=== PATIENT | female | born 1950 | race Caucasian/White ===

== ENCOUNTER 2019-02-17 01:47 | Inpatient (IN) | payer OTHER ==
[2019-02-17] MEDS ORDERED: Clindamycin/D5W 600 mg/50 ml Premix Bag ONE (02:08)
[2019-02-17] MEDS ORDERED: Adacel (T-DAP) 0.5 ML SYRINGE ONE (02:08)
[2019-02-17 02:39] LABS: Hemoglobin 13.2 g/dL (12.0-16.0); Mean Corpuscular HGB CONC 33.7 g/dL (32.0-36.0); Mean Corpuscular Hemoglobin 34.4 pg (27.0-31.0); RBC Distribution Width 12.3 % (11.5-14.5); Red Blood Cell (RBC) Count 3.84 mill/uL (4.20-5.40); White Blood Cell (WBC) Count 5.6 thou/uL (4.8-10.8)
[2019-02-17] MEDS ORDERED: Lidocaine 1% (PF) 30 ML VIAL ONE (02:45)
[2019-02-17] MEDS ORDERED: Bacitracin 1 PK ONE (02:52)
[2019-02-17] MEDS ORDERED: Fentanyl 100 MCG/2 ML VIAL ONE ×5 (02:52→13:35)
[2019-02-17] MEDS ORDERED: Ketamine 50 MG/ML (10ML VIAL) ONE (02:52)
[2019-02-17 02:55] LABS: #Lymphocytes 0.7 thou/uL (1.20-3.40); #Monocytes 0.5 thou/uL (0.11-0.59); #Neutrophils 4.3 thou/uL (1.40-6.50); %Basophils 0.5 % (0.0-1.0); %Eosinophils 0.7 % (0.0-10.0); %Lymphocytes 13.2 % (21.0-51.0); %Monocytes 8.9 % (0.0-10.0); %Neutrophils 76.7 % (42.0-75.0)
[2019-02-17 02:59] LABS: ALT (SGPT) 21 U/L (8-55); AST (SGOT) 34 U/L (5-34); Albumin 3.2 g/dL (3.4-4.8); Alcohol Less than 10 mg/dL (Less than 10); Alkaline Phosphatase 99 U/L (40-110); Anion Gap 14 mmol/L (10-20); BUN (Urea Nitrogen) 24 mg/dL (9.8-20.1); Bilirubin, Total 0.9 mg/dL (0.2-1.2); Calc. Creatinine Clearance 0 mL/min (70-130); Calcium 8.6 mg/dL (7.8-10.44); Carbon Dioxide 21 mmol/L (23-31); Chloride 107 mmol/L (98-107); Estimated GFR-MDRD 74; Globulin 2.9 g/dL (2.4-3.5); Glucose 114 mg/dL (80-115); Lipase 321 U/L (8-78); Potassium 3.5 mmol/L (3.5-5.1); Protein, Total 6.1 g/dL (6.0-8.3); Sodium 138 mmol/L (136-145)
[2019-02-17 03:02] LABS: Mean Platelet Volume 8.4 fL (7.4-10.4); Platelet Count 111 thou/uL (130-400); Platelet Morphology Comment Appears Decreased
[2019-02-17] MEDS ORDERED: Ondansetron PF 4 MG/2 ML Vial IVP PRN (03:20)
[2019-02-17] MEDS ORDERED: Dextrose 50% Abboject 50 ML SYRINGE SLOW IVP PRN (03:20)
[2019-02-17] MEDS ORDERED: HumaLOG 300 UNITS/3 ML VIAL SC PRN (03:20)
[2019-02-17] MEDS ORDERED: Dextrose 5% in Water 1,000 ML IV PRN (03:20)
[2019-02-17] MEDS ORDERED: Ketorolac Tromethamine 30 MG/ML VIAL IVP PRN (03:28)
[2019-02-17] MEDS ORDERED: Sodium Chloride 0.9% 1,000 ML IV SCH (03:30)
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
[2019-02-17] MEDS: Acetaminophen 1,000 MG in Premix Bag 1 BAG IVPB SCH ×2 (05:35→15:35)
[2019-02-17] MEDS: Sodium Chloride 0.9% 1,000 ML IV SCH ×2 (05:35→15:51)
[2019-02-17 05:50] LABS: Amphetamine Not Detected (NotDetected); Benzodiazepine Screen Not Detected (NotDetected); Cocaine Metabolite Screen Not Detected (NotDetected); Medtox Reader # READER 1; Methadone Not Detected (NotDetected); Methamphetamine Not Detected (NotDetected); Opiate Screen Not Detected (NotDetected); Phencyclidine (PCP) Not Detected (NotDetected); THC/Cannabinoid Screen Not Detected (NotDetected); Tricyclic Screen Not Detected (NotDetected)
[2019-02-17 05:51] LABS: Barbiturates Screen Not Detected (NotDetected); Medtox Control Line Valid? VALID (VALID); Oxycodone Screen Not Detected (NotDetected)
[2019-02-17 06:19] LABS: Hemoglobin 12.9 g/dL (12.0-16.0)
[2019-02-17 06:28] VITALS: BMI 28.7
[2019-02-17 06:43] LABS: Anion Gap 12 mmol/L (10-20); BUN (Urea Nitrogen) 17 mg/dL (9.8-20.1); Calc. Creatinine Clearance 75 mL/min (70-130); Calcium 8.6 mg/dL (7.8-10.44); Carbon Dioxide 22 mmol/L (23-31); Chloride 108 mmol/L (98-107); Estimated GFR-MDRD 83; Glucose 116 mg/dL (80-115); Potassium 3.7 mmol/L (3.5-5.1); Sodium 138 mmol/L (136-145)
[2019-02-17] MEDS ORDERED: traMADol HCl 50 MG TAB PO PRN (06:46)
[2019-02-17] MEDS ORDERED: Clindamycin/D5W 900 MG in Premix Bag 1 BAG IVPB SCH ×2 (07:30→14:00)
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
[2019-02-17 07:56] LABS: Magnesium 1.6 mg/dL (1.6-2.6)
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
[2019-02-17] MEDS ORDERED: Magnesium 2 GM/50 ML 2 GM in Premix Bag 1 BAG IVPB SCH (08:30)
[2019-02-17] MEDS ORDERED: Potassium Phosphate 15 MMOL in Sodium Chloride 0.9% 250 ML 100 ML IVPB SCH (08:30)
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
[2019-02-17 09:26] LABS: Hemoglobin 12.8 g/dL (12.0-16.0)
[2019-02-17] MEDS: traMADol HCl 50 MG TAB PO PRN ×2 (09:37→22:57)
[2019-02-17] MEDS: Famotidine/PF 20 mg/2ml Vial SLOW IVP SCH (09:38)
[2019-02-17] MEDS: Gabapentin 100 MG CAP PO SCH ×2 (09:39→22:57)
[2019-02-17] MEDS: Senokot S 8.6-50 MG TAB PO SCH ×2 (09:39→23:02)
[2019-02-17] MEDS: Polyethylene Glycol 3350 17 GM Packet PO SCH (09:40)
[2019-02-17] MEDS ORDERED: Famotidine/PF 20 mg/2ml Vial ONE (10:23)
[2019-02-17] MEDS ORDERED: Dexamethasone 4 mg/ml Vial ONE (10:43)
[2019-02-17] MEDS ORDERED: Rocuronium Bromide 10 MG/ML (10ML VIAL) ONE (10:49)
[2019-02-17] MEDS ORDERED: Bupivacaine/Epinephrine 0.5% 10 ML VIAL ONE (10:49)
[2019-02-17] MEDS ORDERED: Glycopyrrolate 0.4 MG/ 2 ML VIAL ONE (10:49)
[2019-02-17] MEDS ORDERED: PROPOFOL 200 MG/20 ML VIAL ONE (10:49)
[2019-02-17] MEDS ORDERED: Ondansetron PF 4 MG/2 ML Vial ONE (10:49)
[2019-02-17] MEDS ORDERED: Lidocaine 1% PF 5 ML VIAL ONE (10:49)
[2019-02-17] MEDS ORDERED: Promethazine HCl 25 MG/ML VIAL SLOW IVP PRN (11:47)
[2019-02-17] MEDS ORDERED: Meperidine HCl/PF 25 MG/ML VIAL SLOW IVP PRN (11:47)
[2019-02-17] MEDS ORDERED: Promethazine HCl 25 MG/ML VIAL IM PRN (11:47)
[2019-02-17] MEDS ORDERED: ISOVUE-370 76%-LOCM 1 ML ONE (12:00)
--- NOTE | 2019-02-17 13:13 | RAD ---
3 fluoroscopic spot images of the left knee INDICATION: ORIF of left knee fracture COMPARISON: Prior left knee radiograph dated February 17, 2019 IMPRESSION: There is been interval open reduction internal fixation of the proximal tibial plateau fr acture. There is improved fracture alignment of the proximal fibular head fracture. Instrumentation projects in expected position. Total fluoroscopic time was 49 seconds. Total exposure was 1.41 mGy.
[2019-02-17] MEDS ORDERED: Promethazine HCl 25 MG/ML VIAL ONE (13:53)
[2019-02-17] MEDS ORDERED: Meperidine HCl/PF 25 MG/ML VIAL ONE (13:58)
[2019-02-17] MEDS ORDERED: Morphine 4 MG/ML VIAL SLOW IVP SCH (14:00)
[2019-02-17] MEDS ORDERED: diphenhydrAMINE 50 MG/ML VIAL ONE (14:00)
[2019-02-17] MEDS ORDERED: diphenhydrAMINE 50 MG/ML VIAL IVP SCH (14:00)
[2019-02-17] MEDS ORDERED: Morphine 4 MG/ML VIAL ONE (14:01)
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
[2019-02-17] MEDS: Clindamycin/D5W 900 MG in Premix Bag 1 BAG IVPB SCH ×2 (15:49→23:53)
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
[2019-02-17] MEDS ORDERED: Acetaminophen 1,000 MG in Premix Bag 1 BAG IVPB SCH (21:00)
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
[2019-02-17] MEDS: tiZANidine HCl 4 MG TAB PO SCH (22:56)
[2019-02-17] MEDS: Acetaminophen 500 MG TAB PO SCH (23:31)
[2019-02-18] MEDS: Famotidine/PF 20 mg/2ml Vial SLOW IVP SCH
[2019-02-18] MEDS: Acetaminophen 500 MG TAB PO SCH ×3 (05:14→18:06)
[2019-02-18 05:19] LABS: #Lymphocytes 0.5 thou/uL (1.20-3.40); #Monocytes 0.5 thou/uL (0.11-0.59); #Neutrophils 3.1 thou/uL (1.40-6.50); %Basophils 0.2 % (0.0-1.0); %Eosinophils 0.2 % (0.0-10.0); %Lymphocytes 12.2 % (21.0-51.0); %Monocytes 11.3 % (0.0-10.0); %Neutrophils 76.1 % (42.0-75.0); Mean Corpuscular HGB CONC 33.2 g/dL (32.0-36.0); Mean Corpuscular Hemoglobin 34.4 pg (27.0-31.0); Mean Platelet Volume 8.8 fL (7.4-10.4); Platelet Count 83 thou/uL (130-400); RBC Distribution Width 12.4 % (11.5-14.5)
[2019-02-18] MEDS: Sodium Chloride 0.9% 1,000 ML IV SCH ×3 (05:21→18:06)
[2019-02-18 05:57] LABS: Anion Gap 10 mmol/L (10-20); BUN (Urea Nitrogen) 20 mg/dL (9.8-20.1); Calc. Creatinine Clearance 72 mL/min (70-130); Calcium 7.4 mg/dL (7.8-10.44); Carbon Dioxide 22 mmol/L (23-31); Chloride 111 mmol/L (98-107); Estimated GFR-MDRD 79; Glucose 123 mg/dL (80-115); Magnesium 2.1 mg/dL (1.6-2.6); Potassium 4.6 mmol/L (3.5-5.1); Sodium 138 mmol/L (136-145)
[2019-02-18] MEDS: Senokot S 8.6-50 MG TAB PO SCH ×2 (08:47→20:46)
[2019-02-18] MEDS: Gabapentin 100 MG CAP PO SCH (08:47)
[2019-02-18] MEDS: Polyethylene Glycol 3350 17 GM Packet PO SCH (08:47)
[2019-02-18] MEDS: Famotidine 20 MG TAB PO SCH ×2 (08:47→20:34)
[2019-02-18] MEDS: traMADol HCl 50 MG TAB PO PRN (10:58)
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
[2019-02-18] MEDS ORDERED: Hydrocortisone Sod Succ/PF 100 mg/2 ml Vial IVP SCH (15:00)
[2019-02-18] MEDS: Hydrocortisone Sod Succ/PF 100 mg/2 ml Vial IVP SCH ×2 (16:03→20:38)
[2019-02-18] MEDS: Gabapentin 300 MG CAP PO SCH (20:34)
[2019-02-18] MEDS: tiZANidine HCl 4 MG TAB PO SCH (20:36)
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
[2019-02-19] MEDS: traMADol HCl 50 MG TAB PO SCH ×5 (02:11→23:34)
[2019-02-19] MEDS: Acetaminophen 500 MG TAB PO SCH ×5 (02:11→23:34)
[2019-02-19] MEDS: Hydrocortisone Sod Succ/PF 100 mg/2 ml Vial IVP SCH ×4 (02:41→20:47)
[2019-02-19] MEDS ORDERED: diphenhydrAMINE 50 MG/ML VIAL IVP SCH (06:45)
[2019-02-19] MEDS ORDERED: Fentanyl 100 MCG/2 ML VIAL SLOW IVP SCH (06:45)
[2019-02-19] MEDS: Gabapentin 300 MG CAP PO SCH ×2 (08:01→20:47)
[2019-02-19] MEDS: Senokot S 8.6-50 MG TAB PO SCH ×2 (08:01→20:47)
[2019-02-19] MEDS: Polyethylene Glycol 3350 17 GM Packet PO SCH (08:02)
[2019-02-19] MEDS: Famotidine 20 MG TAB PO SCH ×2 (08:02→20:47)
[2019-02-19] MEDS: tiZANidine HCl 4 MG TAB PO SCH (20:46)
[2019-02-19] MEDS: Aspirin 81 mg Enteric Coated Tablet PO SCH (20:47)
--- NOTE | 2019-02-19 22:52 | PRG ---
DATE OF SERVICE: 02/19/2019 Seen approximately 5 hours, updated from progress note today. SUBJECTIVE: Ms. Aaron sitting up, eating, smiling, no acute distress. Pain is controlled. She is awaiting rehab. I have discussed the case with Neurosurgery reference. DVT prophylaxis. Patient is able to be on DVT prophylaxis. Even with C1 fracture there standpoint, however, her platelets were noted to be a little low this morning at 83. We will repeat her CBC in the morning. Consider adding DVT prophylaxis. Her pain is better controlled. Her blood pressures remained stable. She is still on steroids, that is only IV medication. I am going to switch her over to p.o. tonight. If she remains hemodynamically stable, we can stop her steroids. There are no further updates. I have updated the patient's bedside, as well as coordinated with the bedside RN. Job ID: [id number]
[2019-02-20 04:46] LABS: #Lymphocytes 0.5 thou/uL (1.20-3.40); #Monocytes 0.2 thou/uL (0.11-0.59); %Basophils 0.1 % (0.0-1.0); %Eosinophils 0.3 % (0.0-10.0); %Monocytes 8.4 % (0.0-10.0); %Neutrophils 72.3 % (42.0-75.0); Hemoglobin 11.2 g/dL (12.0-16.0); Mean Corpuscular HGB CONC 33.1 g/dL (32.0-36.0); Mean Corpuscular Hemoglobin 34.1 pg (27.0-31.0); Mean Platelet Volume 8.9 fL (7.4-10.4); Platelet Count 80 thou/uL (130-400); RBC Distribution Width 12.3 % (11.5-14.5); Red Blood Cell (RBC) Count 3.28 mill/uL (4.20-5.40); White Blood Cell (WBC) Count 2.7 thou/uL (4.8-10.8)
[2019-02-20 05:00] LABS: Anion Gap 8 mmol/L (10-20); BUN (Urea Nitrogen) 18 mg/dL (9.8-20.1); Calc. Creatinine Clearance 80 mL/min (70-130); Calcium 8.3 mg/dL (7.8-10.44); Carbon Dioxide 25 mmol/L (23-31); Chloride 111 mmol/L (98-107); Estimated GFR-MDRD 90; Glucose 124 mg/dL (80-115); Magnesium 1.9 mg/dL (1.6-2.6); Phosphorus 2.1 mg/dL (2.3-4.7); Potassium 4.5 mmol/L (3.5-5.1); Sodium 139 mmol/L (136-145)
[2019-02-20] MEDS: Acetaminophen 500 MG TAB PO SCH ×4 (05:15→23:10)
[2019-02-20] MEDS: traMADol HCl 50 MG TAB PO SCH ×4 (05:16→23:10)
[2019-02-20] MEDS: Famotidine 20 MG TAB PO SCH ×2 (08:13→20:28)
[2019-02-20] MEDS: Senokot S 8.6-50 MG TAB PO SCH ×2 (08:13→20:28)
[2019-02-20] MEDS: predniSONE 20 MG TAB PO SCH (08:14)
[2019-02-20] MEDS: Gabapentin 300 MG CAP PO SCH ×2 (08:14→20:28)
[2019-02-20] MEDS: Polyethylene Glycol 3350 17 GM Packet PO SCH (08:15)
[2019-02-20] MEDS: Aspirin 81 mg Enteric Coated Tablet PO SCH ×2 (08:15→20:28)
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
--- NOTE | 2019-02-20 11:01 | PRG ---
DATE OF SERVICE: 02/20/2019 Please see Gordo Trejo's note for full details. Await rehab placement for Mrs. Aaron. Job ID: [id number]
--- NOTE | 2019-02-20 12:02 | MRI ---
MRI LEFT SHOULDER WITHOUT CONTRAST: HISTORY: Left upper extremity pain and weakness. FINDINGS: There is mild arthrosis of the AC joint. There is a full-thickness retracted tear of the supraspinatu s tendon. The tendon is retracted by approximately 3.3 cm. The tear involves the entire supraspinatus tendon and includes the anterior half of the infraspinatus tendon. The subscapularis muscle and tendon appear intact. There is tendinosis of the intraarticular portion of the biceps tendon. The biceps tendon may also contain a split tear. There is some tenosynovitis ch zohra. The biceps tendon lies in a fairly normal position within the bicipital groove. Some increased signal change within the superior labrum, which probably represents some internal dege neration. I do not see a definite tear. The inferior glenohumeral ligamentous and labral complex is u nremarkable. There are edema changes associated with the musculotendinous junction of the infraspinatus. There is mild atrophy of the superior fibers of the infraspinatus and mild atrophy of the supraspinatus. IMPRESSION: Large, full-thickness supraspinatus tendon tear and tear extending to involve the more anterior half of the infraspinatus. The tear is retracted by 3.2 cm with the anterior-posterior dimension of the te ar approximately 2.7 cm. Mild atrophy of the supraspinatus and infraspinatus muscles is noted. POS: [facility]
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
[2019-02-20] MEDS: tiZANidine HCl 4 MG TAB PO SCH (20:28)
[2019-02-21] MEDS: Acetaminophen 500 MG TAB PO SCH ×3 (05:55→18:21)
[2019-02-21] MEDS: traMADol HCl 50 MG TAB PO SCH ×3 (05:55→18:21)
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
[2019-02-21] MEDS: Gabapentin 300 MG CAP PO SCH (09:52)
[2019-02-21] MEDS: predniSONE 20 MG TAB PO SCH (09:52)
[2019-02-21] MEDS: Aspirin 81 mg Enteric Coated Tablet PO SCH ×2 (09:53→21:37)
[2019-02-21] MEDS: Senokot S 8.6-50 MG TAB PO SCH ×2 (09:53→21:37)
[2019-02-21] MEDS: Polyethylene Glycol 3350 17 GM Packet PO SCH (09:53)
[2019-02-21 10:56] LABS: #Eosinphils 0.1 thou/uL (0.0-0.7); #Lymphocytes 1.1 thou/uL (1.20-3.40); #Monocytes 0.4 thou/uL (0.11-0.59); #Neutrophils 1.8 thou/uL (1.40-6.50); %Basophils 0.3 % (0.0-1.0); %Eosinophils 2.2 % (0.0-10.0); %Lymphocytes 33.2 % (21.0-51.0); %Monocytes 10.5 % (0.0-10.0); %Neutrophils 53.7 % (42.0-75.0); Hemoglobin 11.5 g/dL (12.0-16.0); Mean Corpuscular HGB CONC 33.6 g/dL (32.0-36.0); Mean Platelet Volume 8.3 fL (7.4-10.4); Platelet Count 122 thou/uL (130-400); RBC Distribution Width 12.4 % (11.5-14.5); Red Blood Cell (RBC) Count 3.38 mill/uL (4.20-5.40); White Blood Cell (WBC) Count 3.4 thou/uL (4.8-10.8)
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
[2019-02-21 11:35] LABS: Anion Gap 11 mmol/L (10-20); BUN (Urea Nitrogen) 18 mg/dL (9.8-20.1); Calc. Creatinine Clearance 76 mL/min (70-130); Calcium 8.5 mg/dL (7.8-10.44); Carbon Dioxide 24 mmol/L (23-31); Chloride 108 mmol/L (98-107); Estimated GFR-MDRD 84; Glucose 84 mg/dL (80-115); Magnesium 1.7 mg/dL (1.6-2.6); Phosphorus 2.6 mg/dL (2.3-4.7); Potassium 3.5 mmol/L (3.5-5.1); Sodium 139 mmol/L (136-145)
[2019-02-21] MEDS: Cyclobenzaprine 10 MG TAB PO PRN (12:09)
[2019-02-21] MEDS: Ibuprofen 600 MG TAB PO SCH ×2 (14:21→21:37)
[2019-02-21] MEDS: Gabapentin 400 MG CAP PO SCH ×2 (14:22→21:37)
[2019-02-21] MEDS: tiZANidine HCl 4 MG TAB PO SCH (21:37)
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
[2019-02-22] MEDS: Acetaminophen 500 MG TAB PO SCH ×5 (00:47→23:35)
[2019-02-22] MEDS: traMADol HCl 50 MG TAB PO SCH ×5 (00:47→23:35)
[2019-02-22 05:40] LABS: #Eosinphils 0.1 thou/uL (0.0-0.7); #Monocytes 0.2 thou/uL (0.11-0.59); #Neutrophils 1.2 thou/uL (1.40-6.50); %Basophils 0.5 % (0.0-1.0); %Eosinophils 3.3 % (0.0-10.0); %Lymphocytes 40.4 % (21.0-51.0); %Monocytes 8.6 % (0.0-10.0); %Neutrophils 47.2 % (42.0-75.0); Hemoglobin 11.5 g/dL (12.0-16.0); Mean Corpuscular HGB CONC 33.3 g/dL (32.0-36.0); Mean Platelet Volume 8.7 fL (7.4-10.4); Platelet Count 111 thou/uL (130-400); RBC Distribution Width 12.5 % (11.5-14.5); Red Blood Cell (RBC) Count 3.38 mill/uL (4.20-5.40); White Blood Cell (WBC) Count 2.5 thou/uL (4.8-10.8)
[2019-02-22 05:56] LABS: Anion Gap 12 mmol/L (10-20); BUN (Urea Nitrogen) 19 mg/dL (9.8-20.1); Calc. Creatinine Clearance 80 mL/min (70-130); Calcium 8.3 mg/dL (7.8-10.44); Carbon Dioxide 23 mmol/L (23-31); Chloride 106 mmol/L (98-107); Estimated GFR-MDRD 90; Glucose 74 mg/dL (80-115); Magnesium 1.7 mg/dL (1.6-2.6); Phosphorus 3.1 mg/dL (2.3-4.7); Potassium 3.8 mmol/L (3.5-5.1); Sodium 137 mmol/L (136-145)
[2019-02-22] MEDS: Ibuprofen 600 MG TAB PO SCH ×3 (06:03→21:17)
[2019-02-22] MEDS ORDERED: Magnesium 2 GM/50 ML 2 GM in Premix Bag 1 BAG IVPB SCH (07:45)
[2019-02-22] MEDS ORDERED: PHOS-NAK 1 PKT PACK PO SCH (07:45)
[2019-02-22] MEDS: predniSONE 20 MG TAB PO SCH (08:28)
[2019-02-22] MEDS: Senokot S 8.6-50 MG TAB PO SCH ×2 (08:29→21:17)
[2019-02-22] MEDS: Aspirin 81 mg Enteric Coated Tablet PO SCH ×2 (08:29→21:16)
[2019-02-22] MEDS: Polyethylene Glycol 3350 17 GM Packet PO SCH (08:30)
[2019-02-22] MEDS: Gabapentin 400 MG CAP PO SCH ×3 (08:35→21:16)
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
[2019-02-22] MEDS: tiZANidine HCl 4 MG TAB PO SCH (21:16)
[2019-02-22] MEDS ORDERED: traMADol HCl 50 MG TAB PO PRN (21:30)
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
[2019-02-23] MEDS: Acetaminophen 500 MG TAB PO SCH ×4 (05:30→23:41)
[2019-02-23] MEDS: traMADol HCl 50 MG TAB PO SCH ×4 (05:30→23:41)
[2019-02-23] MEDS: Ibuprofen 600 MG TAB PO SCH ×3 (05:31→22:07)
[2019-02-23] MEDS: Aspirin 81 mg Enteric Coated Tablet PO SCH ×2 (09:36→20:14)
[2019-02-23] MEDS: predniSONE 20 MG TAB PO SCH (09:36)
[2019-02-23] MEDS: Senokot S 8.6-50 MG TAB PO SCH ×3 (09:36→20:23)
[2019-02-23] MEDS: Gabapentin 400 MG CAP PO SCH ×3 (09:37→20:14)
[2019-02-23] MEDS: Polyethylene Glycol 3350 17 GM Packet PO SCH (09:38)
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
[2019-02-23] MEDS: tiZANidine HCl 4 MG TAB PO SCH (20:14)
[2019-02-23] MEDS: Melatonin 3 MG TAB PO SCH (20:14)
[2019-02-23] MEDS ORDERED: Polyethylene Glycol 3350 17 GM Packet PO PRN (22:17)
[2019-02-23] MEDS ORDERED: Senokot S 8.6-50 MG TAB PO PRN (22:18)
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
[2019-02-24] MEDS: Acetaminophen 500 MG TAB PO SCH ×4 (05:49→23:35)
[2019-02-24] MEDS: Ibuprofen 600 MG TAB PO SCH ×3 (05:49→21:20)
[2019-02-24] MEDS: traMADol HCl 50 MG TAB PO SCH ×4 (05:49→23:35)
[2019-02-24] MEDS: Gabapentin 400 MG CAP PO SCH ×3 (09:32→21:20)
[2019-02-24] MEDS: Aspirin 81 mg Enteric Coated Tablet PO SCH ×2 (09:32→21:20)
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
[2019-02-24] MEDS: Cyclobenzaprine 10 MG TAB PO PRN (18:50)
[2019-02-24] MEDS: tiZANidine HCl 4 MG TAB PO SCH (21:21)
[2019-02-24] MEDS: Melatonin 3 MG TAB PO SCH (21:21)
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
[2019-02-25] MEDS: traMADol HCl 50 MG TAB PO SCH ×4 (05:15→23:35)
[2019-02-25] MEDS: Ibuprofen 600 MG TAB PO SCH ×3 (05:15→21:27)
[2019-02-25] MEDS: Acetaminophen 500 MG TAB PO SCH ×4 (05:15→23:34)
[2019-02-25] MEDS: Cyclobenzaprine 10 MG TAB PO PRN (05:16)
[2019-02-25] MEDS: Gabapentin 400 MG CAP PO SCH ×3 (09:01→21:27)
[2019-02-25] MEDS: Aspirin 81 mg Enteric Coated Tablet PO SCH ×2 (09:01→21:27)
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
[2019-02-25] MEDS: Melatonin 3 MG TAB PO SCH (21:27)
[2019-02-25] MEDS: tiZANidine HCl 4 MG TAB PO SCH (21:27)
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
[2019-02-26] MEDS: traMADol HCl 50 MG TAB PO SCH ×3 (06:09→17:38)
[2019-02-26] MEDS: Acetaminophen 500 MG TAB PO SCH ×3 (06:09→17:38)
[2019-02-26] MEDS: Ibuprofen 600 MG TAB PO SCH ×3 (06:11→20:49)
[2019-02-26] MEDS: Aspirin 81 mg Enteric Coated Tablet PO SCH ×2 (09:40→20:48)
[2019-02-26] MEDS: Gabapentin 400 MG CAP PO SCH ×3 (09:40→20:48)
[2019-02-26] MEDS: Cyclobenzaprine 10 MG TAB PO PRN (09:42)
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
[2019-02-26] MEDS: tiZANidine HCl 4 MG TAB PO SCH (20:48)
[2019-02-26] MEDS: Melatonin 3 MG TAB PO SCH (20:49)
[2019-02-27] MEDS: Acetaminophen 500 MG TAB PO SCH ×3 (00:21→12:56)
[2019-02-27] MEDS: traMADol HCl 50 MG TAB PO SCH ×3 (00:22→12:53)
[2019-02-27] MEDS: Ibuprofen 600 MG TAB PO SCH ×2 (06:02→14:29)
[2019-02-27 07:59] VITALS: TEMP 97.7
[2019-02-27] MEDS: Cyclobenzaprine 10 MG TAB PO PRN (08:26)
[2019-02-27] MEDS: Gabapentin 400 MG CAP PO SCH ×2 (08:26→14:29)
[2019-02-27] MEDS: Aspirin 81 mg Enteric Coated Tablet PO SCH (08:26)
[2019-02-27 11:46] VITALS: BP 136/66
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
== END 2019-02-27 15:31 | DRG 493 ==
LOC: ERS 01:47 → CCU 05:07 → SURG B 13:33
PROVIDERS: ADMIT Specialist; ATTEND Specialist
PROC: 0QSH04Z Reposition Left Tibia with Internal Fixation Device, Open Approach (ICD-10-PCS; principal; 2019-02-17)
PROC: 3E0234Z Introduction of Serum, Toxoid and Vaccine into Muscle, Percutaneous Approach (ICD-10-PCS; 2019-02-17)
PROC: 0XQRXZZ Repair Left Middle Finger, External Approach (ICD-10-PCS; 2019-02-17)
DX: S82.142B Displaced bicondylar fracture of left tibia, initial encounter for open fracture type I or II (principal); S12.000A Unspecified displaced fracture of first cervical vertebra, initial encounter for closed fracture; D61.818 Other pancytopenia; S61.213A Laceration without foreign body of left middle finger without damage to nail, initial encounter; S30.1XXA Contusion of abdominal wall, initial encounter; S82.832A Other fracture of upper and lower end of left fibula, initial encounter for closed fracture; S46.012A Strain of muscle(s) and tendon(s) of the rotator cuff of left shoulder, initial encounter; E83.42 Hypomagnesemia; E83.39 Other disorders of phosphorus metabolism; Z23 Encounter for immunization; Z88.1 Allergy status to other antibiotic agents; Z93.2 Ileostomy status; V59.9XXA Occupant (driver) (passenger) of pick-up truck or van injured in unspecified traffic accident, initial encounter; Z88.5 Allergy status to narcotic agent
CPT/HCPCS: 12002; 27752; 36415; 36416; 70450; 71045; 71260; 72125; 72170; 74177; 76000; 80048; 80053; 80306; 80307; 82533; 83690; 83735; 84100; 85025; 90715; 96361; 96365; 96375; 96376; C1713; G0390; J0131; J1100; J1200; J1720; J2001; J2175; J2270; J2405; J2550; J2704; J3010; J3475; J3490; J7050; J7512; Q9966; S0028

== ENCOUNTER 2019-03-21 12:11 | Outpatient (CLI) | payer OTHER ==
--- NOTE | 2019-03-21 12:52 | RAD ---
EXAM: 3 views of the cervical spine HISTORY: Cervical vertebral fracture COMPARISON: CT cervical spine 02/17/2019 FINDINGS: AP, lateral, and open mouth odontoid views of the cervical spine shows normal height and al ignment of the vertebral bodies and intervertebral discs. Lucency is seen on the open mouth odontoid views in the lateral mass of C1. This represents the patient's known fracture. Moderate dege nerative changes are seen at C5/6 and C6/7. No prevertebral soft tissue swelling is seen. IMPRESSION: Stable fracture of the left aspect of C1.
== END 2019-03-21 12:12 | disposition home or self-care (01) ==
LOC: BICRAD 12:11
PROVIDERS: ATTEND Physical Medicine & Rehabilitation
DX: S12.000D Unspecified displaced fracture of first cervical vertebra, subsequent encounter for fracture with routine healing (principal)
CPT/HCPCS: 72040

== ENCOUNTER 2019-08-17 14:18 | Outpatient (CLI) | payer OTHER ==
[2019-08-17 15:42] LABS: Hemoglobin 13.9 g/dL (12.0-16.0); Mean Corpuscular HGB CONC 32.3 g/dL (32.0-36.0); Mean Corpuscular Hemoglobin 32.5 pg (27.0-31.0); Mean Platelet Volume 8.7 fL (7.4-10.4); Platelet Count 129 thou/uL (130-400); RBC Distribution Width 14.2 % (11.5-14.5); Red Blood Cell (RBC) Count 4.28 mill/uL (4.20-5.40); White Blood Cell (WBC) Count 3.4 thou/uL (4.8-10.8)
[2019-08-17 15:57] LABS: INR-International Normal Ratio 1.1
[2019-08-18 11:28] LABS: SARS-CoV-2 MS2 Positive; SARS-CoV-2 N Gene Negative; SARS-CoV-2 S Gene Negative; SARS-CoV-2 orf1ab Negative
== END 2019-08-17 14:19 | disposition home or self-care (01) ==
LOC: LABBT 14:18
PROVIDERS: ATTEND Neurological Surgery
DX: Z01.812 Encounter for preprocedural laboratory examination (principal); Z11.59 Encounter for screening for other viral diseases
CPT/HCPCS: 85027; 85610; 85730; 87635; U0002

== ENCOUNTER 2019-08-17 14:30 | Inpatient (IN) | payer OTHER ==
[2019-08-17 14:34] VITALS: BMI 29.5
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
[2019-08-21] MEDS ORDERED: Levofloxacin 500 mg/D5W 100 ml Premix Bag ONE (06:12)
[2019-08-21] MEDS ORDERED: Clindamycin/D5W 900 mg/50 ml Premix Bag ONE (06:12)
[2019-08-21] MEDS ORDERED: Thrombin 5000 UNITS/5 ML VIAL ONE (06:13)
[2019-08-21] MEDS ORDERED: EPINEPHrine 1 MG/ML AMP ONE (06:13)
[2019-08-21] MEDS ORDERED: Bupivacaine PF 0.5% 30 ML VIAL ONE (06:13)
[2019-08-21] MEDS ORDERED: Bacitracin Zinc Ointment 30 gm TUBE ONE (06:24)
[2019-08-21] MEDS ORDERED: Fentanyl 100 MCG/2 ML VIAL ONE ×2 (06:49→10:48)
[2019-08-21] MEDS ORDERED: Midazolam HCl 2 mg/2 ml Vial ONE (06:49)
[2019-08-21] MEDS ORDERED: Lidocaine 1% PF 5 ML VIAL ONE (09:37)
[2019-08-21] MEDS ORDERED: EPHEDRINE 25 MG/5 ML SYRINGE ONE (09:37)
[2019-08-21] MEDS ORDERED: PROPOFOL 200 MG/20 ML VIAL ONE (09:37)
[2019-08-21] MEDS ORDERED: Ketorolac Tromethamine 30 MG/ML VIAL ONE (09:37)
[2019-08-21] MEDS ORDERED: Ondansetron PF 4 MG/2 ML Vial ONE (09:37)
[2019-08-21] MEDS ORDERED: Rocuronium Bromide 10 MG/ML (10ML VIAL) ONE (09:37)
[2019-08-21] MEDS ORDERED: Glycopyrrolate 0.2 MG/ML 5 ML SYRINGE ONE (09:37)
[2019-08-21] MEDS ORDERED: PHENYLEPHRINE-NS 100 MCG/ML 10 ML SYRINGE ONE (09:37)
[2019-08-21] MEDS ORDERED: Mag-Al 1200 mg/1200 mg/30 ML UDCUP PO PRN (10:32)
[2019-08-21] MEDS ORDERED: Ondansetron PF 4 MG/2 ML Vial IVP PRN (10:32)
[2019-08-21] MEDS ORDERED: diphenhydrAMINE 25 MG CAP PO PRN (10:32)
[2019-08-21] MEDS ORDERED: Prochlorperazine 10 MG/2 ML VIAL IM PRN (10:32)
[2019-08-21] MEDS ORDERED: Milk Of Magnesia 30 ML UDCUP PO PRN (10:32)
[2019-08-21] MEDS ORDERED: traMADol HCl 50 MG TAB PO PRN ×3 (10:32→12:22)
[2019-08-21] MEDS ORDERED: Promethazine HCl 25 MG/ML VIAL SLOW IVP PRN (10:40)
[2019-08-21] MEDS ORDERED: Promethazine HCl 25 MG/ML VIAL IM PRN (10:40)
[2019-08-21] MEDS ORDERED: Ondansetron HCl/PF 4 MG/2 ML Vial IVP PRN (10:40)
--- NOTE | 2019-08-21 11:28 | OP ---
DATE OF PROCEDURE: 08/21/2019 OLD COIN DEALER: Edmond Hernandez PA-C PREOPERATIVE INDICATION: Prevent neurological deterioration. PREOPERATIVE DIAGNOSES: 1. Unstable C1 fracture with nonunion. 2. Stenosis from compression of the arch of C1. POSTOPERATIVE DIAGNOSES: 1. Unstable C1 fracture with nonunion. 2. Stenosis from compression of the arch of C1. PROCEDURES PERFORMED: Posterior laminectomy of C1 (removal of posterior arch of C1 for decompression) and an occipital C3 fusion with an occipital plate, C2 pars screws, and C3 lateral mass screws. Local morselized autograft and morselized allograft. PREOPERATIVE MEDICATIONS: Levaquin 500 mg IV, clindamycin 900 mg IV. DRAIN NUMBER: Zero. DRAIN TYPE: None. DESCRIPTION OF PROCEDURE: The patient was brought to the operating room. General endotracheal anesthesia was induced. Randhawa pin and head scorer were attached to the patient's head. Very carefully, the patient was log-rolled onto the operating table with the chest and hips supported by gel-filled chest rolls. The head was immobilized in Randhawa pin and head scorer in the Randhawa attachment for the operating table. A lateral fluoro radiograph confirmed adequate positioning of the craniocervical junction for a fusion operation. Hair was removed from the back of the neck with electric clippers. We marked out a midline incision. The back of the neck was sterilely prepped and draped. We opened a midline incision with a 10 blade knife and controlled bleeding with bipolar and monopolar cautery. We used monopolar cautery to dissect through subcutaneous tissues to the ligamentum nuchae and the midline of the occiput. We gently reflected the suboccipital musculature off the skull and the paraspinal muscles off the arch of C1 in the lamina of C2 and C3 and the top of C4. We identified the lateral mass of C3, lateral mass of C2 , and the lateral mass of C1 bilaterally. Self-retaining retractors were placed. We then used 2-mm Kerrison rongeur to remove the arch of C1. We did this by removing bone on the left than the right and then removing a large segment of the arch of C1 as a single piece. With our decompression, bone was cleaned of all soft tissue attachments, morcellized and added to demineralized bone matrix to form a fusion substrate. We turned our attention to instrumentation. First, we chose entry points for the C2 pars screws. Because of the small amount of bone superior to the transverse foramina at C2, we elected to place a pars screws just short of the vertebral arteries on both sides. We chose a superior and medially angled trajectory and drilled to a depth of 14 mm. A 14 mm screws were placed. We then drilled out our trajectories for C3 lateral mass screws, 14 mm lateral mass screws were placed as well. An occipital plate was brought into the field. This was bent to the contours of the suboccipital region. We attached the plate with a temporary pin in the midline and we drilled missile control pilot holes to a depth of 8 mm in the midline and 6 mm laterally. We affixed the plate with 4 separate occipital screws. There was good bony purchase throughout. We then brought angle rods into the field and cut them to the appropriate length. We bent them to encounter the C2 and C3 screw heads and then we tightened caps over the rods. Using a torque/counter-torque mechanism, we ensured adequate tightness. We irrigated copiously with bacitracin irrigation. We decorticated the lateral mass of C1, C2, and C3 as well as the facet joint at C2-C3 and the suboccipital bone around the foramen magnum and around the plate. Over the decorticated bone, we left demineralized bone matrix and morselized autograft as our posterior lateral fusion substrate. We treated the center of the wound with vancomycin powder. We closed in anatomical layers after infusing local anesthetic. We applied a sterile dressing. This was a clean case, no contamination. Job ID: [id number]
[2019-08-21] MEDS ORDERED: Polyethylene Glycol 3350 17 GM Packet PO PRN (12:05)
[2019-08-21] MEDS ORDERED: Senokot S 8.6-50 MG TAB PO PRN (12:06)
[2019-08-21] MEDS: Sodium Chloride 0.9% 1,000 ML IV SCH ×2 (12:07→20:27)
[2019-08-21] MEDS: Scopolamine 1.5 mg/72 hour Patch TD SCH (12:08)
[2019-08-21] MEDS ORDERED: traMADol HCl 50 MG TAB PO SCH (12:30)
--- NOTE | 2019-08-21 13:35 | PDOC.HOSPP ---
- Subjective Encounter Date: 08/21/19 Encounter Time: 12:45 Subjective: is post op in room 3328 c/o pain at operated site, is in c.collar no sob or chest pain is moving all extremities no nausea or headache - Objective Vital Signs & Weight: Weight Weight 141 lb Hospitalist ROS - Medication Medications: Active Medications Generic Name Dose Route Start Last Admin Trade Name Freq PRN Reason Stop Dose Admin Sodium Chloride 1,000 mls @ 100 mls/hr 08/21/19 10:45 08/21/19 12:07 Normal Saline 0.9% IV Not Given .Q10H KARSTEN Scopolamine 1.5 mg 08/21/19 10:45 08/21/19 12:08 Transderm Scop TD 1.5 mg Q3D KARSTEN Administration - Exam General Appearance: awake alert Eye: PERRL, anicteric sclera ENT: no oropharyngeal lesions, dry oral mucosa Neck: no JVD Heart: RRR, no murmur Respiratory: no wheezes, no rales Gastrointestinal: soft, non-tender, non-distended, normal bowel sounds Extremities: no cyanosis, no edema Neurological: cranial nerve grossly intact, no focal deficits Psychiatric: normal affect, A&O x 3 Hosp A/P (1) s/p cervical laminectomy and fusion Status: Acute (2) Peripheral neuropathy Code(s): G62.9 - POLYNEUROPATHY, UNSPECIFIED Status: Chronic Qualifiers: Peripheral neuropathy type: idiopathic neuropathy, unspecified Qualified Code(s): G60.9 - Hereditary and idiopathic neuropathy, unspecified (3) Depression Code(s): F32.9 - MAJOR DEPRESSIVE DISORDER, SINGLE EPISODE, UNSPECIFIED Status : Chronic Qualifiers: Depression Type: major depressive disorder Active/Remission status: in full remission - Plan pt is s/p post lamincectomy of C1 with C3 fusion for unstable C1 fracture and nonunion 08/21/2019 continue iv hydration, ultram, tizanidine, fentanyl prn, sertraline and gabapentin as before hemo/neurostable to mobilize per nsx advice
[2019-08-21] MEDS: Clindamycin/D5W 900 MG in Premix Bag 1 BAG IVPB SCH (16:22)
[2019-08-21] MEDS: Gabapentin 400 MG CAP PO SCH ×2 (16:22→20:25)
[2019-08-21] MEDS: tiZANidine HCl 4 MG TAB PO PRN (16:22)
[2019-08-21] MEDS ORDERED: Fentanyl 100 MCG/2 ML VIAL SLOW IVP PRN (16:52)
[2019-08-21] MEDS: traMADol HCl 50 MG TAB PO SCH (19:22)
[2019-08-21] MEDS: Acetaminophen 500 MG TAB PO PRN (20:24)
[2019-08-21] MEDS: Melatonin 3 MG TAB PO SCH (20:25)
[2019-08-21] MEDS: tiZANidine HCl 4 MG TAB PO SCH (22:09)
[2019-08-22] MEDS: Sodium Chloride 0.9% 1,000 ML IV SCH ×3 (00:20→18:28)
[2019-08-22] MEDS: traMADol HCl 50 MG TAB PO SCH ×5 (00:21→20:16)
[2019-08-22] MEDS: Clindamycin/D5W 900 MG in Premix Bag 1 BAG IVPB SCH (01:16)
[2019-08-22 06:03] LABS: Hemoglobin 13.9 g/dL (12.0-16.0); Mean Corpuscular HGB CONC 31.7 g/dL (32.0-36.0); Mean Corpuscular Hemoglobin 33.1 pg (27.0-31.0); Mean Platelet Volume 9.2 fL (7.4-10.4); Platelet Count 113 thou/uL (130-400); RBC Distribution Width 14.3 % (11.5-14.5); Red Blood Cell (RBC) Count 4.19 mill/uL (4.20-5.40); White Blood Cell (WBC) Count 4.2 thou/uL (4.8-10.8)
[2019-08-22 06:04] LABS: Band 5 % (5-11); Lymphocytes 17 % (21-51); MDiff Complete? YES; Macrocytosis SLIGHT = 6-15 cells (100X) (0-5/hpf); Monocytes 16 % (0-10); Neutrophil 62 % (42-75); Platelet Morphology Comment Appears Decreased
[2019-08-22 06:13] LABS: Anion Gap 17 mmol/L (10-20); BUN (Urea Nitrogen) 14 mg/dL (9.8-20.1); Calc. Creatinine Clearance 73 mL/min (70-130); Calcium 7.8 mg/dL (7.8-10.44); Carbon Dioxide 18 mmol/L (23-31); Chloride 108 mmol/L (98-107); Estimated GFR-MDRD 80; Glucose 75 mg/dL (80-115); Potassium 4.5 mmol/L (3.5-5.1); Sodium 138 mmol/L (136-145)
--- NOTE | 2019-08-22 07:06 | PRG ---
DATE OF SERVICE: 08/22/2019 Ms. Aaron is 1 day out from occipitocervical fusion for an unstable C1 fracture. She is actually doing better than anticipated. Her pain is under reasonable control. She got out of bed yesterday with some assistance. Overnight, 99.2 degrees Fahrenheit was the highest recorded temperature that I saw among the electronically recorded vital signs. Blood pressures have ranged between the 90s and 110s. On her neurological exam, I find no new deficits. The collar is in place. When Ms. Aaron is independent for her activities of daily living, she can be discharged. If she needs more assistance than that is available for her at home, then a transfer to inpatient rehabilitation could be considered. I anticipate discharge home, however. This could be as early as this afternoon. Job ID: [id number] MTDD
[2019-08-22] MEDS ORDERED: Fentanyl 100 MCG/2 ML VIAL SLOW IVP PRN (07:24)
[2019-08-22] MEDS: Gabapentin 400 MG CAP PO SCH ×3 (08:02→20:15)
[2019-08-22] MEDS: tiZANidine HCl 4 MG TAB PO PRN (08:03)
[2019-08-22] MEDS ORDERED: Aspirin 325 mg Enteric Coated Tablet PO SCH ×2 (09:00)
--- NOTE | 2019-08-22 12:15 | PDOC.HOSPP ---
- Subjective Encounter Date: 08/22/19 Encounter Time: 08:35 Subjective: c/o pain at operated site says she ambulated a bit with PT no sob - Objective Vital Signs & Weight: Vital Signs (12 hours) Temp Pulse Resp BP Pulse Ox 08/22/19 10:28 57 L 16 94 L 08/22/19 07:25 98.3 F 71 16 112/72 90 L 08/22/19 03:26 99.2 F 67 16 105/71 96 08/22/19 00:20 108/71 Weight Weight 141 lb I&O: 08/21/19 08/22/19 08/23/19 06:59 06:59 06:59 Intake Total 1060 1680 Output Total 125 Balance 1060 1555 Result Diagrams: 08/22/19 05:45 08/22/19 05:45 Hospitalist ROS - Medication Medications: Active Medications Generic Name Dose Route Start Last Admin Trade Name Freq PRN Reason Stop Dose Admin Acetaminophen 500 mg 08/21/19 12:11 08/21/19 20:24 Tylenol PO 500 mg Q6H PRN Administration Pain Fentanyl 25 mcg 08/21/19 16:52 08/21/19 16:57 Sublimaze SLOW IVP 25 mcg Q1H PRN Administration Severe Pain (7-10) Fentanyl 50 mcg 08/22/19 07:24 08/22/19 07:34 Sublimaze SLOW IVP 50 mcg Q2H PRN Administration Severe Pain (7-10) Gabapentin 400 mg 08/21/19 15:00 08/22/19 08:02 Neurontin PO 400 mg TID KARSTEN Administration Sodium Chloride 1,000 mls @ 100 mls/hr 08/21/19 10:45 08/22/19 06:48 Normal Saline 0.9% IV Not Given .Q10H KARSTEN Melatonin 3 mg 08/21/19 21:00 08/21/19 20:25 Melatonin PO Not Given HS KARSTEN Scopolamine 1.5 mg 08/21/19 10:45 08/21/19 12:08 Transderm Scop TD 1.5 mg Q3D KARSTEN Administration Sertraline HCl 50 mg 08/22/19 09:00 08/22/19 08:02 Zoloft PO 50 mg DAILY KARSTEN Administration Tizanidine HCl 4 mg 08/21/19 10:32 08/22/19 08:03 Zanaflex PO 4 mg Q6H PRN Administration Muscle Spasm Tizanidine HCl 4 mg 08/21/19 21:00 08/21/19 22:09 Zanaflex PO Not Given HS KARSTEN Tramadol HCl 50 mg 08/21/19 12:10 08/22/19 00:20 Ultram PO 50 mg Q6H PRN Administration Mild Pain (1-3) Tramadol HCl 100 mg 08/21/19 18:00 08/22/19 05:18 Ultram PO 100 mg Q6HR KARSTEN Administration - Exam General Appearance: awake alert Eye: PERRL, anicteric sclera ENT: no oropharyngeal lesions, moist mucosa Neck: no JVD Heart: RRR, no murmur Respiratory: no wheezes, no rales Gastrointestinal: soft, non-tender, non-distended, normal bowel sounds Extremities: no cyanosis, no edema Neurological: cranial nerve grossly intact, no focal deficits Hosp A/P (1) s/p cervical laminectomy and fusion Status: Acute (2) Peripheral neuropathy Code(s): G62.9 - POLYNEUROPATHY, UNSPECIFIED Status: Chronic Qualifiers: Peripheral neuropathy type: idiopathic neuropathy, unspecified Qualified Code(s): G60.9 - Hereditary and idiopathic neuropathy, unspecified (3) Depression Code(s): F32.9 - MAJOR DEPRESSIVE DISORDER, SINGLE EPISODE, UNSPECIFIED Status : Chronic Qualifiers: Depression Type: major depressive disorder Active/Remission status: in full remission - Plan pt is s/p post lamincectomy of C1 with C3 fusion for unstable C1 fracture and nonunion 08/21/2019 continue iv ultram, tizanidine, fentanyl prn, sertraline and gabapentin as before hemo/neurostable to mobilize per nsx advice
[2019-08-22] MEDS ORDERED: Prevnar 13-Val Conj/PF 0.5 ML SYRINGE IM ONE (13:15)
[2019-08-22] MEDS: tiZANidine HCl 4 MG TAB PO SCH (20:15)
[2019-08-22] MEDS: Melatonin 3 MG TAB PO SCH (20:17)
[2019-08-23] MEDS: tiZANidine HCl 4 MG TAB PO PRN (03:34)
[2019-08-23] MEDS: Sodium Chloride 0.9% 1,000 ML IV SCH ×3 (05:06→21:34)
[2019-08-23] MEDS: traMADol HCl 50 MG TAB PO SCH ×3 (05:47→18:30)
--- NOTE | 2019-08-23 08:40 | PRG ---
DATE OF SERVICE: 08/23/2019 Ms. Lindsay Aaron is 2 days out from occipital cervical fusion for a nonhealing C1 fracture. Neurologically, she is doing well. In the last 24 hours, the highest temperature recorded is 99.0 degrees Fahrenheit. Her neurological examination is stable. Ms. Albarado is ready for transfer back to a nursing facility and she could benefit from physical therapy while she is there. Arrangements could be made for her to leave today. Job ID: [id number]
[2019-08-23] MEDS: Gabapentin 400 MG CAP PO SCH ×3 (09:42→21:32)
--- NOTE | 2019-08-23 12:07 | PDOC.HOSPP ---
- Subjective Encounter Date: 08/23/19 Encounter Time: 08:30 Subjective: c/o pain, is sitting on commode has not ambulated much no sob or nausea - Objective Vital Signs & Weight: Vital Signs (12 hours) Temp Pulse Resp BP Pulse Ox 08/23/19 11:12 98.3 F 54 L 12 112/71 90 L 08/23/19 07:15 97.7 F 52 L 12 108/59 L 95 08/23/19 03:41 98.4 F 57 L 16 106/71 100 Weight Admit Weight 141 lb Weight 141 lb I&O: 08/22/19 08/23/19 08/24/19 06:59 06:59 06:59 Intake Total 1060 2310 Output Total 1025 Balance 1060 1285 Result Diagrams: 08/22/19 05:45 08/22/19 05:45 Hospitalist ROS - Medication Medications: Active Medications Generic Name Dose Route Start Last Admin Trade Name Freq PRN Reason Stop Dose Admin Acetaminophen 500 mg 08/21/19 12:11 08/21/19 20:24 Tylenol PO 500 mg Q6H PRN Administration Pain Fentanyl 25 mcg 08/21/19 16:52 08/21/19 16:57 Sublimaze SLOW IVP 25 mcg Q1H PRN Administration Severe Pain (7-10) Fentanyl 50 mcg 08/22/19 07:24 08/22/19 07:34 Sublimaze SLOW IVP 50 mcg Q2H PRN Administration Severe Pain (7-10) Gabapentin 400 mg 08/21/19 15:00 08/23/19 09:42 Neurontin PO 400 mg TID KARSTEN Administration Sodium Chloride 1,000 mls @ 100 mls/hr 08/21/19 10:45 08/23/19 05:06 Normal Saline 0.9% IV Not Given .Q10H KARSTEN Melatonin 3 mg 08/21/19 21:00 08/22/19 20:17 Melatonin PO 3 mg HS KARSTEN Administration Meperidine HCl 50 mg 08/22/19 14:45 08/22/19 18:27 Demerol PO 50 mg Q4H PRN Administration Severe Pain (7-10) Scopolamine 1.5 mg 08/21/19 10:45 08/21/19 12:08 Transderm Scop TD 1.5 mg Q3D KARSTEN Administration Sertraline HCl 50 mg 08/22/19 09:00 08/23/19 09:42 Zoloft PO 50 mg DAILY KARSTEN Administration Tizanidine HCl 4 mg 08/21/19 10:32 08/23/19 03:34 Zanaflex PO 4 mg Q6H PRN Administration Muscle Spasm Tizanidine HCl 4 mg 08/21/19 21:00 08/22/19 20:15 Zanaflex PO 4 mg HS KARSTEN Administration Tramadol HCl 100 mg 08/21/19 18:00 08/23/19 11:22 Ultram PO 100 mg Q6HR KARSTEN Administration - Exam General Appearance: awake alert Eye: PERRL, anicteric sclera ENT: no oropharyngeal lesions, dry oral mucosa Neck: supple, no JVD Heart: RRR, no murmur Respiratory: no wheezes, no rales Gastrointestinal: soft, non-tender, non-distended, normal bowel sounds Extremities: no cyanosis, no edema Neurological: cranial nerve grossly intact, no focal deficits Psychiatric: A&O x 3 Hosp A/P (1) s/p cervical laminectomy and fusion Status: Acute (2) Peripheral neuropathy Code(s): G62.9 - POLYNEUROPATHY, UNSPECIFIED Status: Chronic Qualifiers: Peripheral neuropathy type: idiopathic neuropathy, unspecified Qualified Code(s): G60.9 - Hereditary and idiopathic neuropathy, unspecified (3) Depression Code(s): F32.9 - MAJOR DEPRESSIVE DISORDER, SINGLE EPISODE, UNSPECIFIED Status : Chronic Qualifiers: Depression Type: major depressive disorder Active/Remission status: in full remission (4) Physical deconditioning Code(s): R53.81 - OTHER MALAISE Status: Acute - Plan pt is s/p post lamincectomy of C1 with C3 fusion for unstable C1 fracture and nonunion 08/21/2019 continue iv fluids, ultram, tizanidine, fentanyl and demerol prn, sertraline and gabapentin hemo/neurostable to mobilize per nsx advice awaiting placement advance diet from full liq per nsx advice ensure 1 can tid
[2019-08-23] MEDS: Melatonin 3 MG TAB PO SCH (21:32)
[2019-08-23] MEDS: tiZANidine HCl 4 MG TAB PO SCH (21:32)
[2019-08-24] MEDS: traMADol HCl 50 MG TAB PO SCH ×3 (00:32→13:16)
--- NOTE | 2019-08-24 07:29 | PRG ---
DATE OF SERVICE: 08/24/2019 Ms. Aaron is 3 days out from occipitocervical fusion. Her neck is sore, but otherwise, she feels well. She was ready for discharge yesterday. Her T-max overnight was 98.9 degrees Fahrenheit. Her blood pressures have been in the 110s to 120s. The neurological exam is Normal. Ms. Aaron can be discharged from the hospital today. She came in from the [facility] and can return. Job ID: [id number] MTDD
[2019-08-24] MEDS: Sodium Chloride 0.9% 1,000 ML IV SCH ×2 (07:44→16:18)
[2019-08-24] MEDS: Gabapentin 400 MG CAP PO SCH ×3 (08:49→20:47)
[2019-08-24] MEDS: tiZANidine HCl 4 MG TAB PO PRN (08:49)
[2019-08-24] MEDS: Acetaminophen 500 MG TAB PO PRN (08:50)
[2019-08-24] MEDS: Scopolamine 1.5 mg/72 hour Patch TD SCH (10:48)
[2019-08-24] MEDS ORDERED: traMADol HCl 50 MG TAB PO PRN (13:09)
[2019-08-24] MEDS ORDERED: Sodium Chloride 0.9% 500 ML IV SCH (14:15)
[2019-08-24 14:47] LABS: Anion Gap 10 mmol/L (10-20); BUN (Urea Nitrogen) 10 mg/dL (9.8-20.1); Calc. Creatinine Clearance 87 mL/min (70-130); Calcium 8.2 mg/dL (7.8-10.44); Carbon Dioxide 28 mmol/L (23-31); Chloride 101 mmol/L (98-107); Estimated GFR-MDRD Greater than 90; Glucose 110 mg/dL (80-115); Potassium 3.8 mmol/L (3.5-5.1); Sodium 135 mmol/L (136-145)
[2019-08-24] MEDS: tiZANidine HCl 4 MG TAB PO SCH (20:47)
[2019-08-24] MEDS: Melatonin 3 MG TAB PO SCH (20:47)
[2019-08-25] MEDS: Sodium Chloride 0.9% 1,000 ML IV SCH ×2 (03:45→15:46)
[2019-08-25] MEDS ORDERED: tiZANidine HCl 4 MG TAB PO SCH ×2 (06:49→21:00)
--- NOTE | 2019-08-25 07:22 | PRG ---
DATE OF SERVICE: 08/25/2019 Ms. Aaron is 4 days out from occipital cervical fusion for unstable C1 fracture. She states she is doing well, better than she anticipated. She says her pain has been manageable. After talking to the nurse today, said that she has not been asking for any additional pain meds. Discontinued her Dilaudid and fentanyl. Reduced her Zanaflex to 2 mg at night. Today, when I saw Ms. Albarado, she was awake and alert. Her neuro exam was intact. All her extremities are working well. Her blood pressures have been in the 110s and 120s. Her max temperature overnight was 98.9 degrees Fahrenheit. Her collar is in place and I find no new deficits. Ms. Aaron is independent for her activities of daily living and she can be discharged. She came from the [facility] and can return. Job ID: [id number] MTDD
[2019-08-25] MEDS: Gabapentin 400 MG CAP PO SCH ×2 (09:36→14:16)
[2019-08-25 15:32] VITALS: BP 143/85; TEMP 99.4
[2019-08-25] MEDS ORDERED: Polyethylene Glycol 3350 17 GM Packet PO PRN (17:01)
[2019-08-25] MEDS ORDERED: Senokot S 8.6-50 MG TAB PO PRN (17:01)
[2019-08-25] MEDS ORDERED: traMADol HCl 50 MG TAB PO SCH (18:00)
[2019-08-25] MEDS ORDERED: Gabapentin 400 MG CAP PO SCH (21:00)
[2019-08-25] MEDS ORDERED: Melatonin 3 MG TAB PO SCH (21:00)
== END 2019-08-25 18:45 | DRG 472 ==
LOC: SURG A 08-21 05:25 → SURG B 08-21 12:22 → EDSTATUS 08-21 14:30
PROVIDERS: ADMIT Neurological Surgery; ATTEND Neurological Surgery
PROC: 0RG2071 Fusion of 2 or more Cervical Vertebral Joints with Autologous Tissue Substitute, Posterior Approach, Posterior Column, Open Approach (ICD-10-PCS; principal; 2019-08-21)
PROC: 01N10ZZ Release Cervical Nerve, Open Approach (ICD-10-PCS; 2019-08-21)
DX: M48.02 Spinal stenosis, cervical region (principal); S12.02 Unstable burst fracture of first cervical vertebra; G95.29 Other cord compression; M19.90 Unspecified osteoarthritis, unspecified site; J30.2 Other seasonal allergic rhinitis; B18.2 Chronic viral hepatitis C; F32.9 Major depressive disorder, single episode, unspecified; G60.9 Hereditary and idiopathic neuropathy, unspecified; R53.81 Other malaise; Z87.891 Personal history of nicotine dependence; Z79.82 Long term (current) use of aspirin; Z79.899 Other long term (current) drug therapy; Z88.1 Allergy status to other antibiotic agents; Z88.5 Allergy status to narcotic agent; V89.2XXD Person injured in unspecified motor-vehicle accident, traffic, subsequent encounter; Z93.2 Ileostomy status
CPT/HCPCS: 36415; 76000; 80048; 85025; C1768; J0171; J1885; J1956; J2001; J2250; J2405; J2704; J3010; J3370; J3490; S0020

== ENCOUNTER 2019-08-18 14:59 | Outpatient (CLI) | payer OTHER ==
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
== END 2019-08-18 15:00 | disposition home or self-care (01) ==
LOC: BICCT 14:59
PROVIDERS: ATTEND Neurological Surgery
DX: S12.02 Unstable burst fracture of first cervical vertebra (principal)
CPT/HCPCS: 72125

== ENCOUNTER 2019-10-10 10:00 | Emergency (ER) | payer MEDICARE ==
[2019-10-10 10:53] LABS: #Lymphocytes 0.7 thou/uL (1.20-3.40); #Monocytes 0.6 thou/uL (0.11-0.59); %Basophils 0.6 % (0.0-1.0); %Lymphocytes 16.8 % (21.0-51.0); %Monocytes 12.8 % (0.0-10.0); %Neutrophils 68.8 % (42.0-75.0); Hemoglobin 13.9 g/dL (12.0-16.0); Mean Corpuscular HGB CONC 33.4 g/dL (32.0-36.0); Mean Corpuscular Hemoglobin 33.5 pg (27.0-31.0); Mean Platelet Volume 8.7 fL (7.4-10.4); Platelet Count 102 thou/uL (130-400); RBC Distribution Width 12.4 % (11.5-14.5); Red Blood Cell (RBC) Count 4.17 mill/uL (4.20-5.40); White Blood Cell (WBC) Count 4.3 thou/uL (4.8-10.8)
[2019-10-10 10:57] LABS: PTT 25.1 sec (22.9-36.1)
[2019-10-10 10:58] LABS: INR-International Normal Ratio 1.2; Prothrombin Time 14.9 sec (12.0-14.7)
--- NOTE | 2019-10-10 11:03 | ULT ---
Exam:Leftlower extremity venous ultrasound with Doppler HISTORY: Left lower extremity erythema andlower extremity swelling COMPARISON: None TECHNIQUE: Grayscale, color flow, Doppler imaging and spectral wave muscle performed left lower extre mity venous system FINDINGS: There is compressibility, presence of flow and augmentation in the common femoral vein, femoral vein and popliteal vein. There is flow in the posterior tibial vein. There is flow in the greater saphenous vein and profunda femoral vein IMPRESSION: No thrombus in the left lower extremity deep venous system.
[2019-10-10 11:45] LABS: ALT (SGPT) 19 U/L (8-55); AST (SGOT) 41 U/L (5-34); Albumin 3.8 g/dL (3.4-4.8); Alkaline Phosphatase 150 U/L (40-110); Anion Gap 11 mmol/L (10-20); BUN (Urea Nitrogen) 19 mg/dL (9.8-20.1); Bilirubin, Total 0.6 mg/dL (0.2-1.2); Calc. Creatinine Clearance 0 mL/min (70-130); Carbon Dioxide 27 mmol/L (23-31); Chloride 101 mmol/L (98-107); Estimated GFR-MDRD 63; Globulin 4.5 g/dL (2.4-3.5); Glucose 82 mg/dL (80-115); Potassium 5.2 mmol/L (3.5-5.1); Protein, Total 8.3 g/dL (6.0-8.3); Sodium 134 mmol/L (136-145)
--- NOTE | 2019-10-10 15:05 | RAD ---
EXAM: 3 views of the left ankle HISTORY: Ankle pain after injury COMPARISON: 02/17/2019 FINDINGS: 3 views of the left ankle shows no evidence of acute fracture or dislocation. Mild diffuse soft tissue swelling is seen. No degenerative changes are present. IMPRESSION: No evidence of acute osseous abnormality.
[2019-10-10 16:08] LABS: Band 8 % (5-11); Eosinophils 1 % (0-10); Hemoglobin 15.2 g/dL (12.0-16.0); Lymphocytes 21 % (21-51); MDiff Complete? YES; Macrocytosis SLIGHT = 6-15 cells (100X) (0-5/hpf); Mean Corpuscular HGB CONC 33.9 g/dL (32.0-36.0); Mean Corpuscular Hemoglobin 33.6 pg (27.0-31.0); Mean Corpuscular Volume 99.1 fL (78.0-98.0); Mean Platelet Volume 8.8 fL (7.4-10.4); Monocytes 9 % (0-10); Neutrophil 53 % (42-75); Platelet Count 135 thou/uL (130-400); Platelet Morphology Comment Appears Adequate; Polychromasia SLIGHT = 2-3 cells (100X) (0-2/hpf); RBC Distribution Width 12.5 % (11.5-14.5); Reactive Lymphocytes 7 % (0-10); Red Blood Cell (RBC) Count 4.53 mill/uL (4.20-5.40); White Blood Cell (WBC) Count 4.7 thou/uL (4.8-10.8)
[2019-10-10 16:17] LABS: Anion Gap 12 mmol/L (10-20); BUN (Urea Nitrogen) 17 mg/dL (9.8-20.1); Calc. Creatinine Clearance 0 mL/min (70-130); Calcium 8.7 mg/dL (7.8-10.44); Carbon Dioxide 23 mmol/L (23-31); Chloride 104 mmol/L (98-107); Estimated GFR-MDRD 68; Glucose 125 mg/dL (80-115); Potassium 4.1 mmol/L (3.5-5.1); Sodium 135 mmol/L (136-145)
--- NOTE | 2019-10-10 20:15 | PDOC.EVN ---
Event Note - Event Note Event Note: pt evaluated in er and her chart was reviewed. Her thrombocytopenia is not new. She however does have left lower ext purpura. left ankle xray no fx. I have ordered ernesto/peripheral smear. I have made her an appointment with heme. she states she feels well and does not want to be admitted. No signs of infection. She also has leukopenia which is chronic. No new meds. She does have a hx of Familial adenomatous polyposis. pt discharged from the ED.
[2019-10-12 17:25] LABS: ANA Symphony (Qualitative) Equivocal: See Note (Negative); ANA Symphony (Quantitative) 0.8 Ratio (< 0.7 Negative); dsDNA IgG Antibody 0.9 IU/mL (<10 Negative)
== END 2019-10-10 17:50 ==
LOC: ERS 10:00
DX: D69.6 Thrombocytopenia, unspecified (principal); D69.3 Immune thrombocytopenic purpura; Z79.82 Long term (current) use of aspirin; Z79.899 Other long term (current) drug therapy
CPT/HCPCS: 36415; 80053; 82607; 82746; 85025; 85060; 85610; 85652; 85730; 86038; 86140; 86225

== ENCOUNTER 2019-10-23 10:15 | Outpatient (CLI) | payer OTHER ==
--- NOTE | 2019-10-23 10:53 | RAD ---
Exam: 2 view cervical spine COMPARISON: 05/04/2019 Correlation: Cervical spine CT 08/18/2019 HISTORY: Cervical spine fracture. Status post fusion FINDINGS: There is fusion along the posterior calvarium and the posterior elements of C2 and C3. No p erihardware lucency. No malalignment on the AP or lateral projection. Minimal anterolisthesis of C3 upon C4 and C4 upon C5 is noted. Vacuum disc phenomenon and osteophyte formation is identified. Prede ntal space appears to be 0.3 cm. Preserved noted fracture of the left lateral mass at C1 is difficult to appreciate on the current exam due to overlying hardware. IMPRESSION: Cervical fusion as above.
== END 2019-10-23 10:16 | disposition home or self-care (01) ==
LOC: BICRAD 10:15
PROVIDERS: ATTEND Neurological Surgery
DX: S12.2 Fracture of third cervical vertebra (principal); Z98.1 Arthrodesis status
CPT/HCPCS: 72040

== ENCOUNTER 2020-01-19 10:42 | Outpatient (CLI) | payer OTHER ==
--- NOTE | 2020-01-19 12:26 | RAD ---
CERVICAL SPINE SERIES 4 VIEWS: Date: 01/19/2020 HISTORY: Left lateral mass of C1 fracture, postop. Patient having neck pain. COMPARISON: 10/23/2019 exam. FINDINGS: Postop changes are again noted. There is posterior fusion with hardware, with screws and rods placed from the level of the occipital bone to extend into the posterior elements of C2 and C3. The lateral mass fracture is not well visualized on this exam. The distance between the anterior arch of C1 and t he dens is stable at approximately 3.0 mm. Marked arthritic changes of the lower lumbar spine with mi nimal anterolisthesis of C4 on C5 is seen. IMPRESSION: Stable postop change. POS: MADELYN
== END 2020-01-19 10:43 | disposition home or self-care (01) ==
LOC: BICRAD 10:42
PROVIDERS: ATTEND Neurological Surgery
DX: S12.000D Unspecified displaced fracture of first cervical vertebra, subsequent encounter for fracture with routine healing (principal)
CPT/HCPCS: 72040

== ENCOUNTER 2020-06-29 21:43 | Inpatient (IN) | payer MEDICARE ==
[2020-06-29 22:45] LABS: #Lymphocytes 0.9 thou/uL (1.20-3.40); #Monocytes 0.5 thou/uL (0.11-0.59); #Neutrophils 3.2 thou/uL (1.40-6.50); %Basophils 0.3 % (0.0-1.0); %Eosinophils 0.5 % (0.0-10.0); %Lymphocytes 20.3 % (21.0-51.0); %Monocytes 10.1 % (0.0-10.0); %Neutrophils 68.8 % (42.0-75.0); Hemoglobin 13.1 g/dL (12.0-16.0); Mean Corpuscular HGB CONC 33.1 g/dL (32.0-36.0); Mean Corpuscular Hemoglobin 33.2 pg (27.0-31.0); Mean Platelet Volume 8.6 fL (7.4-10.4); Platelet Count 120 thou/uL (130-400); RBC Distribution Width 13.3 % (11.5-14.5); Red Blood Cell (RBC) Count 3.95 mill/uL (4.20-5.40); White Blood Cell (WBC) Count 4.6 thou/uL (4.8-10.8)
[2020-06-29 22:49] LABS: Bacteria/HPF None Seen HPF (None Seen); Bilirubin Negative (Negative); Blood, Urine Trace (Negative); Clarity Clear (Clear); Glucose, Urine (Dipstick) Normal (Negative); Ketone, Urine 10 mg/dL (Negative); Leukocyte Negative Leu/uL (Negative); Nitrite Negative (Negative); Protein, Urine (Dipstick) 30 mg/dL (Neg-Trace); RBC/HPF 21-50 HPF (0-3); Specific Gravity, Urine 1.031 (1.002-1.036); Squamous Epithelial 0-3 HPF (0-3); Urobilinogen Normal mg/dL (Less than 2)
[2020-06-29 23:06] LABS: ALT (SGPT) 18 U/L (8-55); AST (SGOT) 37 U/L (5-34); Albumin 3.7 g/dL (3.4-4.8); Alkaline Phosphatase 116 U/L (40-110); Anion Gap 15 mmol/L (10-20); BUN (Urea Nitrogen) 19 mg/dL (9.8-20.1); Bilirubin, Total 1.3 mg/dL (0.2-1.2); Calc. Creatinine Clearance 0 mL/min (70-130); Calcium 8.9 mg/dL (7.8-10.44); Carbon Dioxide 24 mmol/L (23-31); Chloride 104 mmol/L (98-107); Globulin 3.4 g/dL (2.4-3.5); Glucose 121 mg/dL (83-110); Potassium 3.5 mmol/L (3.5-5.1); Protein, Total 7.1 g/dL (5.8-8.1); Sodium 139 mmol/L (136-145)
[2020-06-29] MEDS ORDERED: niCARdipine 20MG In NaCl 20 MG/200 ML BAG ONE (23:09)
[2020-06-29] MEDS ORDERED: Labetalol HCl 100 MG/20 ML VIAL SLOW IVP PRN (23:40)
[2020-06-30] MEDS ORDERED: Acetaminophen 325 MG TAB PO PRN (00:39)
[2020-06-30 00:42] LABS: SARS-CoV-2 NAA Rapid Test Not Detected (NotDetected)
[2020-06-30 01:54] VITALS: BMI 31.8
[2020-06-30] MEDS: Dexamethasone 4 mg/ml Vial SLOW IVP SCH ×4 (03:38→17:06)
[2020-06-30] MEDS: hydrALAZINE 20 MG/ML VIAL SLOW IVP PRN ×3 (03:44→15:44)
[2020-06-30 04:03] LABS: #Lymphocytes 0.9 thou/uL (1.20-3.40); #Monocytes 0.5 thou/uL (0.11-0.59); #Neutrophils 2.7 thou/uL (1.40-6.50); %Basophils 0.5 % (0.0-1.0); %Eosinophils 0.7 % (0.0-10.0); %Lymphocytes 22.1 % (21.0-51.0); %Monocytes 11.7 % (0.0-10.0); Hemoglobin 13.1 g/dL (12.0-16.0); Mean Corpuscular HGB CONC 33.7 g/dL (32.0-36.0); Mean Corpuscular Hemoglobin 33.4 pg (27.0-31.0); Mean Corpuscular Volume 99.1 fL (78.0-98.0); Mean Platelet Volume 8.4 fL (7.4-10.4); Platelet Count 105 thou/uL (130-400); RBC Distribution Width 13.3 % (11.5-14.5); Red Blood Cell (RBC) Count 3.92 mill/uL (4.20-5.40); White Blood Cell (WBC) Count 4.1 thou/uL (4.8-10.8)
[2020-06-30 04:16] LABS: Anion Gap 13 mmol/L (10-20); BUN (Urea Nitrogen) 14 mg/dL (9.8-20.1); Calc. Creatinine Clearance 89 mL/min (70-130); Calcium 8.6 mg/dL (7.8-10.44); Carbon Dioxide 24 mmol/L (23-31); Chloride 105 mmol/L (98-107); Glucose 92 mg/dL (83-110); Potassium 3.3 mmol/L (3.5-5.1); Sodium 139 mmol/L (136-145)
[2020-06-30] MEDS ORDERED: Electrolyte Replacement Protocol 1 EACH FS PRN (06:50)
[2020-06-30] MEDS: Potassium Chloride 20 MEQ in Premix Bag 1 BAG IVPB SCH ×3 (07:30→10:14)
[2020-06-30] MEDS ORDERED: FLU VACC QS2020-21(65YR UP)/PF 240 MCG/0.7 ML SYRINGE IM ONE (09:00)
[2020-06-30] MEDS ORDERED: Magnevist 469MG/ML 20 ML VIAL ONE (09:10)
[2020-06-30] MEDS ORDERED: Potassium Chloride 20 MEQ TAB PO SCH (10:00)
[2020-06-30] MEDS ORDERED: Diazepam 5 MG TAB PO SCH (10:50)
[2020-06-30] MEDS ORDERED: Iopamidol-370 76% 500 ML 1 ML ONE (11:52)
[2020-06-30] MEDS ORDERED: niMODipine 30 MG CAP PO SCH (17:00)
[2020-06-30] MEDS: niMODipine 30 MG CAP PO SCH ×2 (17:06→20:41)
[2020-07-01] MEDS: Dexamethasone 4 mg/ml Vial SLOW IVP SCH ×4 (00:08→17:51)
[2020-07-01] MEDS: niMODipine 30 MG CAP PO SCH ×6 (00:08→21:58)
[2020-07-01 04:13] LABS: Anion Gap 15 mmol/L (10-20); BUN (Urea Nitrogen) 18 mg/dL (9.8-20.1); Calc. Creatinine Clearance 80 mL/min (70-130); Carbon Dioxide 21 mmol/L (23-31); Chloride 106 mmol/L (98-107); Glucose 138 mg/dL (83-110); Potassium 3.9 mmol/L (3.5-5.1); Sodium 138 mmol/L (136-145)
[2020-07-02] MEDS: Dexamethasone 4 mg/ml Vial SLOW IVP SCH ×2 (00:54→05:31)
[2020-07-02] MEDS: niMODipine 30 MG CAP PO SCH ×2 (00:55→05:31)
[2020-07-02 05:25] LABS: #Lymphocytes 0.6 thou/uL (1.20-3.40); #Monocytes 0.3 thou/uL (0.11-0.59); #Neutrophils 6.8 thou/uL (1.40-6.50); %Basophils 0.2 % (0.0-1.0); %Eosinophils 0.1 % (0.0-10.0); %Lymphocytes 7.4 % (21.0-51.0); %Monocytes 3.4 % (0.0-10.0); %Neutrophils 88.9 % (42.0-75.0); Hemoglobin 13.3 g/dL (12.0-16.0); Mean Corpuscular HGB CONC 33.3 g/dL (32.0-36.0); Mean Corpuscular Hemoglobin 32.9 pg (27.0-31.0); Mean Corpuscular Volume 98.8 fL (78.0-98.0); Mean Platelet Volume 8.9 fL (7.4-10.4); Platelet Count 124 thou/uL (130-400); RBC Distribution Width 13.7 % (11.5-14.5); Red Blood Cell (RBC) Count 4.05 mill/uL (4.20-5.40); White Blood Cell (WBC) Count 7.7 thou/uL (4.8-10.8)
[2020-07-02 05:49] LABS: Anion Gap 13 mmol/L (10-20); BUN (Urea Nitrogen) 27 mg/dL (9.8-20.1); Calc. Creatinine Clearance 76 mL/min (70-130); Calcium 8.9 mg/dL (7.8-10.44); Carbon Dioxide 21 mmol/L (23-31); Chloride 107 mmol/L (98-107); Glucose 115 mg/dL (83-110); Potassium 4.3 mmol/L (3.5-5.1); Sodium 137 mmol/L (136-145)
[2020-07-02] MEDS: Amlodipine 5 MG TAB PO SCH (09:59)
[2020-07-02] MEDS: HYDROcodone/Acetaminophen 5/325 mg Tablet PO PRN ×2 (12:45→21:47)
[2020-07-02] MEDS: Dexamethasone 4 MG TAB PO SCH ×2 (12:46→18:08)
[2020-07-03] MEDS: Dexamethasone 4 MG TAB PO SCH ×3 (00:33→12:23)
[2020-07-03] MEDS: HYDROcodone/Acetaminophen 5/325 mg Tablet PO PRN (05:34)
[2020-07-03] MEDS: hydrALAZINE 20 MG/ML VIAL SLOW IVP PRN (05:39)
[2020-07-03] MEDS: Amlodipine 5 MG TAB PO SCH (08:28)
[2020-07-03 15:31] VITALS: BP 142/66; TEMP 98
== END 2020-07-03 16:42 | disposition home health service (06) | DRG 64 ==
LOC: ERS 21:43 → CCU 23:37 → 2SE 07-01 10:23
PROVIDERS: ADMIT Student in an Organized Health Care Education/Training Program; ATTEND Internal Medicine
DX: I61.9 Nontraumatic intracerebral hemorrhage, unspecified (principal); G93.6 Cerebral edema; G08 Intracranial and intraspinal phlebitis and thrombophlebitis; N39.0 Urinary tract infection, site not specified; E86.0 Dehydration; E87.6 Hypokalemia; D69.59 Other secondary thrombocytopenia; G89.29 Other chronic pain; R31.9 Hematuria, unspecified; Z20.822 Contact with and (suspected) exposure to COVID-19; F32.9 Major depressive disorder, single episode, unspecified; Z90.49 Acquired absence of other specified parts of digestive tract; Z88.1 Allergy status to other antibiotic agents; Z88.6 Allergy status to analgesic agent; Z79.82 Long term (current) use of aspirin; Z93.2 Ileostomy status
CPT/HCPCS: 36415; 51701; 70450; 70496; 70553; 80048; 80053; 81015; 83605; 85025; 87040; 87086; 96365; 96366; A9579; J0360; J1100; J1956; J3480; J8540; Q9967; U0002

== ENCOUNTER 2020-07-08 05:24 | Emergency (ER) | payer MEDICARE ==
[2020-07-08 06:13] LABS: #Basophils 0.1 thou/uL (0.0-0.2); #Lymphocytes 0.7 thou/uL (1.20-3.40); #Monocytes 0.4 thou/uL (0.11-0.59); #Neutrophils 6.4 thou/uL (1.40-6.50); %Basophils 0.7 % (0.0-1.0); %Eosinophils 0.1 % (0.0-10.0); %Lymphocytes 9.1 % (21.0-51.0); Hemoglobin 13.1 g/dL (12.0-16.0); Mean Corpuscular HGB CONC 33.4 g/dL (32.0-36.0); Mean Corpuscular Hemoglobin 33.4 pg (27.0-31.0); Mean Corpuscular Volume 99.9 fL (78.0-98.0); Mean Platelet Volume 8.2 fL (7.4-10.4); Platelet Count 172 thou/uL (130-400); RBC Distribution Width 13.5 % (11.5-14.5); Red Blood Cell (RBC) Count 3.92 mill/uL (4.20-5.40); White Blood Cell (WBC) Count 7.5 thou/uL (4.8-10.8)
[2020-07-08 06:23] LABS: Bacteria/HPF None Seen HPF (None Seen); Bilirubin Negative (Negative); Blood, Urine 1+ (Negative); Clarity Clear (Clear); Glucose, Urine (Dipstick) Normal (Negative); Ketone, Urine Negative (Negative); Leukocyte Negative Leu/uL (Negative); Nitrite Negative (Negative); Protein, Urine (Dipstick) 20 mg/dL (Neg-Trace); Specific Gravity, Urine 1.025 (1.002-1.036); Squamous Epithelial 0-3 HPF (0-3); Urobilinogen Normal mg/dL (Less than 2)
[2020-07-08 06:34] LABS: ALT (SGPT) 38 U/L (8-55); AST (SGOT) 34 U/L (5-34); Albumin 3.9 g/dL (3.4-4.8); Alkaline Phosphatase 113 U/L (40-110); Anion Gap 12 mmol/L (10-20); BUN (Urea Nitrogen) 28 mg/dL (9.8-20.1); Bilirubin, Total 0.6 mg/dL (0.2-1.2); Calc. Creatinine Clearance 0 mL/min (70-130); Carbon Dioxide 23 mmol/L (23-31); Chloride 107 mmol/L (98-107); Globulin 3.4 g/dL (2.4-3.5); Glucose 111 mg/dL (83-110); Potassium 3.9 mmol/L (3.5-5.1); Protein, Total 7.3 g/dL (5.8-8.1); Sodium 138 mmol/L (136-145)
== END 2020-07-08 09:14 | disposition home or self-care (01) ==
LOC: ERS 05:24
DX: R45.1 Restlessness and agitation (principal); I10 Essential (primary) hypertension; Z79.82 Long term (current) use of aspirin; Z79.899 Other long term (current) drug therapy
CPT/HCPCS: 51701; 70450; 71045; 80053; 81003; 81015; 85025; 87086; 94760

== ENCOUNTER 2020-07-11 16:38 | Emergency (ER) | payer MEDICARE ==
[2020-07-11 19:31] LABS: #Basophils 0.1 thou/uL (0.0-0.2); #Lymphocytes 0.4 thou/uL (1.20-3.40); #Monocytes 0.3 thou/uL (0.11-0.59); #Neutrophils 5.7 thou/uL (1.40-6.50); %Basophils 1.5 % (0.0-1.0); %Eosinophils 0.1 % (0.0-10.0); %Lymphocytes 6.5 % (21.0-51.0); %Monocytes 4.9 % (0.0-10.0); Hemoglobin 13.2 g/dL (12.0-16.0); Mean Corpuscular HGB CONC 32.6 g/dL (32.0-36.0); Mean Platelet Volume 8.2 fL (7.4-10.4); Platelet Count 125 thou/uL (130-400); RBC Distribution Width 13.5 % (11.5-14.5); White Blood Cell (WBC) Count 6.5 thou/uL (4.8-10.8)
== END 2020-07-11 19:49 ==
LOC: ERS 16:38
DX: I10 Essential (primary) hypertension (principal)
CPT/HCPCS: 36415; 85025; 99283

== ENCOUNTER 2020-07-15 13:38 | Outpatient (CLI) | payer OTHER | END 2020-07-15 13:39 | disposition home or self-care (01) | LOC: BICRAD 13:38 | PROVIDERS: ATTEND Neurological Surgery | DX: S12.02 Unstable burst fracture of first cervical vertebra (principal); Z98.1 Arthrodesis status | CPT/HCPCS: 72050 ==

== ENCOUNTER 2020-07-21 00:24 | Inpatient (IN) | payer MEDICARE ==
[2020-07-21] MEDS ORDERED: Ondansetron PF 4 MG/2 ML Vial ONE (00:32)
[2020-07-21 00:49] LABS: #Eosinphils 0.1 thou/uL (0.0-0.7); #Monocytes 0.5 thou/uL (0.11-0.59); #Neutrophils 3.8 thou/uL (1.40-6.50); %Basophils 0.3 % (0.0-1.0); %Eosinophils 1.4 % (0.0-10.0); %Lymphocytes 18.1 % (21.0-51.0); %Monocytes 8.7 % (0.0-10.0); %Neutrophils 71.5 % (42.0-75.0); Mean Corpuscular HGB CONC 32.9 g/dL (32.0-36.0); Mean Corpuscular Hemoglobin 33.6 pg (27.0-31.0); Mean Platelet Volume 8.6 fL (7.4-10.4); Platelet Count 90 thou/uL (130-400); RBC Distribution Width 13.5 % (11.5-14.5); Red Blood Cell (RBC) Count 2.98 mill/uL (4.20-5.40); White Blood Cell (WBC) Count 5.3 thou/uL (4.8-10.8)
[2020-07-21 01:08] LABS: ALT (SGPT) 33 U/L (8-55); AST (SGOT) 29 U/L (5-34); Alkaline Phosphatase 79 U/L (40-110); Anion Gap 15 mmol/L (10-20); BUN (Urea Nitrogen) 16 mg/dL (9.8-20.1); Bilirubin, Total 0.5 mg/dL (0.2-1.2); Calc. Creatinine Clearance 0 mL/min (70-130); Calcium 8.1 mg/dL (7.8-10.44); Carbon Dioxide 22 mmol/L (23-31); Chloride 106 mmol/L (98-107); Globulin 2.6 g/dL (2.4-3.5); Glucose 125 mg/dL (83-110); Lipase 227 U/L (8-78); Potassium 3.5 mmol/L (3.5-5.1); Protein, Total 5.6 g/dL (5.8-8.1); Sodium 139 mmol/L (136-145)
[2020-07-21 03:31] LABS: Hemoglobin 9.5 g/dL (12.0-16.0); Mean Corpuscular HGB CONC 33.4 g/dL (32.0-36.0); Mean Corpuscular Hemoglobin 33.9 pg (27.0-31.0); Mean Platelet Volume 8.2 fL (7.4-10.4); Platelet Count 84 thou/uL (130-400); RBC Distribution Width 13.8 % (11.5-14.5); Red Blood Cell (RBC) Count 2.79 mill/uL (4.20-5.40); White Blood Cell (WBC) Count 5.5 thou/uL (4.8-10.8)
[2020-07-21] MEDS ORDERED: Ondansetron PF 4 MG/2 ML Vial IVP PRN (04:57)
[2020-07-21] MEDS ORDERED: Sodium Chloride 0.9% (PF) 10 ML VIAL FS PRN (05:15)
[2020-07-21 05:46] VITALS: BMI 34.1
[2020-07-21 07:52] LABS: Hemoglobin 8.7 g/dL (12.0-16.0); Mean Corpuscular HGB CONC 33.3 g/dL (32.0-36.0); Mean Corpuscular Hemoglobin 33.9 pg (27.0-31.0); Mean Platelet Volume 8.3 fL (7.4-10.4); Platelet Count 77 thou/uL (130-400); RBC Distribution Width 13.6 % (11.5-14.5); Red Blood Cell (RBC) Count 2.55 mill/uL (4.20-5.40); White Blood Cell (WBC) Count 3.9 thou/uL (4.8-10.8)
[2020-07-21 07:59] LABS: INR-International Normal Ratio 1.2; PTT 29.7 sec (22.9-36.1); Prothrombin Time 15.4 sec (12.0-14.7)
[2020-07-21] MEDS ORDERED: Pantoprazole 40 MG VIAL IVP SCH (09:00)
[2020-07-21 09:32] LABS: SARS-CoV-2 PCR by NAA Not Detected (NotDetected)
[2020-07-21] MEDS ORDERED: Midazolam HCl 2 mg/2 ml Vial ONE (10:43)
[2020-07-21] MEDS ORDERED: Ketamine 50 MG/ML (10ML VIAL) ONE (10:43)
[2020-07-21] MEDS ORDERED: PROPOFOL 200 MG/20 ML VIAL ONE (11:04)
[2020-07-21] MEDS ORDERED: Silver Nitrate Application 1 EACH ONE (11:17)
[2020-07-21] MEDS ORDERED: Ondansetron HCl/PF 4 MG/2 ML Vial IVP PRN (11:38)
[2020-07-21 15:01] LABS: Hemoglobin 8.6 g/dL (12.0-16.0)
[2020-07-21 16:17] LABS: Hemoglobin 8.2 g/dL (12.0-16.0)
[2020-07-21] MEDS: Acetaminophen 325 MG TAB PO PRN (21:01)
[2020-07-21] MEDS: Pantoprazole 40 MG VIAL IVP SCH (21:02)
[2020-07-21 21:32] LABS: Hemoglobin 8.6 g/dL (12.0-16.0)
[2020-07-22 06:06] LABS: #Eosinphils 0.1 thou/uL (0.0-0.7); #Lymphocytes 0.9 thou/uL (1.20-3.40); #Monocytes 0.4 thou/uL (0.11-0.59); #Neutrophils 2.2 thou/uL (1.40-6.50); %Basophils 0.7 % (0.0-1.0); %Eosinophils 1.4 % (0.0-10.0); %Lymphocytes 24.1 % (21.0-51.0); %Monocytes 11.6 % (0.0-10.0); %Neutrophils 62.2 % (42.0-75.0); Hemoglobin 7.5 g/dL (12.0-16.0); Mean Corpuscular HGB CONC 33.7 g/dL (32.0-36.0); Mean Corpuscular Hemoglobin 34.7 pg (27.0-31.0); Mean Platelet Volume 8.8 fL (7.4-10.4); Platelet Count 90 thou/uL (130-400); RBC Distribution Width 13.9 % (11.5-14.5); Red Blood Cell (RBC) Count 2.17 mill/uL (4.20-5.40); White Blood Cell (WBC) Count 3.6 thou/uL (4.8-10.8)
[2020-07-22 06:25] LABS: Anion Gap 9 mmol/L (10-20); BUN (Urea Nitrogen) 14 mg/dL (9.8-20.1); Calc. Creatinine Clearance 86 mL/min (70-130); Calcium 7.7 mg/dL (7.8-10.44); Carbon Dioxide 26 mmol/L (23-31); Chloride 112 mmol/L (98-107); Glucose 132 mg/dL (83-110); Potassium 4.2 mmol/L (3.5-5.1); Sodium 143 mmol/L (136-145)
[2020-07-22] MEDS: Pantoprazole 40 MG VIAL IVP SCH ×2 (09:12→21:28)
[2020-07-22 10:02] LABS: Hemoglobin 6.6 g/dL (12.0-16.0)
[2020-07-22 11:03] LABS: Hemoglobin 8.1 g/dL (12.0-16.0)
[2020-07-22 16:46] LABS: Hemoglobin 7.8 g/dL (12.0-16.0)
[2020-07-22] MEDS: Acetaminophen 325 MG TAB PO PRN (21:28)
[2020-07-23] MEDS: Acetaminophen 325 MG TAB PO PRN (05:35)
[2020-07-23 06:23] LABS: #Eosinphils 0.1 thou/uL (0.0-0.7); #Lymphocytes 0.6 thou/uL (1.20-3.40); #Monocytes 0.3 thou/uL (0.11-0.59); #Neutrophils 1.3 thou/uL (1.40-6.50); %Basophils 0.2 % (0.0-1.0); %Eosinophils 2.4 % (0.0-10.0); %Lymphocytes 26.6 % (21.0-51.0); %Monocytes 13.6 % (0.0-10.0); %Neutrophils 57.2 % (42.0-75.0); Hemoglobin 7.5 g/dL (12.0-16.0); Mean Corpuscular HGB CONC 32.8 g/dL (32.0-36.0); Mean Corpuscular Hemoglobin 33.9 pg (27.0-31.0); Mean Platelet Volume 8.2 fL (7.4-10.4); Platelet Count 88 thou/uL (130-400); RBC Distribution Width 13.8 % (11.5-14.5); Red Blood Cell (RBC) Count 2.21 mill/uL (4.20-5.40); White Blood Cell (WBC) Count 2.2 thou/uL (4.8-10.8)
[2020-07-23 06:40] LABS: Anion Gap 7 mmol/L (10-20); BUN (Urea Nitrogen) 12 mg/dL (9.8-20.1); Calc. Creatinine Clearance 91 mL/min (70-130); Calcium 7.6 mg/dL (7.8-10.44); Carbon Dioxide 27 mmol/L (23-31); Chloride 111 mmol/L (98-107); Glucose 142 mg/dL (83-110); Potassium 3.1 mmol/L (3.5-5.1); Sodium 142 mmol/L (136-145)
[2020-07-23] MEDS ORDERED: Potassium Chloride 20 MEQ TAB PO SCH (08:00)
[2020-07-23] MEDS: Pantoprazole 40 MG VIAL IVP SCH ×2 (09:16→20:32)
[2020-07-23 14:08] LABS: Hemoglobin 7.5 g/dL (12.0-16.0)
[2020-07-24 05:57] LABS: #Lymphocytes 0.8 thou/uL (1.20-3.40); #Monocytes 0.3 thou/uL (0.11-0.59); #Neutrophils 1.7 thou/uL (1.40-6.50); %Basophils 0.7 % (0.0-1.0); %Eosinophils 1.3 % (0.0-10.0); %Lymphocytes 28.4 % (21.0-51.0); %Monocytes 11.2 % (0.0-10.0); %Neutrophils 58.4 % (42.0-75.0); Hemoglobin 8.1 g/dL (12.0-16.0); Mean Corpuscular HGB CONC 33.5 g/dL (32.0-36.0); Mean Platelet Volume 8.1 fL (7.4-10.4); Platelet Count 132 thou/uL (130-400); RBC Distribution Width 13.9 % (11.5-14.5); Red Blood Cell (RBC) Count 2.37 mill/uL (4.20-5.40); White Blood Cell (WBC) Count 2.9 thou/uL (4.8-10.8)
[2020-07-24 06:17] LABS: Anion Gap 15 mmol/L (10-20); BUN (Urea Nitrogen) 12 mg/dL (9.8-20.1); Calc. Creatinine Clearance 81 mL/min (70-130); Calcium 8.1 mg/dL (7.8-10.44); Carbon Dioxide 19 mmol/L (23-31); Chloride 108 mmol/L (98-107); Glucose 161 mg/dL (83-110); Potassium 3.4 mmol/L (3.5-5.1); Sodium 139 mmol/L (136-145)
[2020-07-24] MEDS: Pantoprazole 40 MG VIAL IVP SCH (08:33)
[2020-07-24] MEDS: Lorazepam 2 MG/ML VIAL SLOW IVP PRN (11:33)
[2020-07-24] MEDS ORDERED: Potassium Chloride 20 MEQ TAB PO SCH (12:00)
[2020-07-24 12:27] LABS: ALT (SGPT) 28 U/L (8-55); AST (SGOT) 24 U/L (5-34); Alkaline Phosphatase 79 U/L (40-110); Bilirubin, Direct 0.2 mg/dL (0.1-0.3); Bilirubin, Total 0.4 mg/dL (0.2-1.2); Protein, Total 5.6 g/dL (5.8-8.1)
[2020-07-24 12:57] LABS: Vitamin D, 25 Hydroxy 14.8 ng/ml (> 30.0)
[2020-07-24 13:02] LABS: Thyroid Stimulating Hormone 1.6779 uIU/mL (0.35-4.94)
[2020-07-24 22:18] LABS: Bacteria/HPF None Seen HPF (None Seen); Bilirubin Negative (Negative); Blood, Urine Negative (Negative); Clarity Clear (Clear); Glucose, Urine (Dipstick) Normal (Negative); Ketone, Urine Negative (Negative); Leukocyte Negative Leu/uL (Negative); Nitrite Negative (Negative); Protein, Urine (Dipstick) Negative (Neg-Trace); RBC/HPF 0-3 HPF (0-3); Specific Gravity, Urine 1.021 (1.002-1.036); Squamous Epithelial 0-3 HPF (0-3); Urobilinogen Normal mg/dL (Less than 2); WBC/HPF 0-3 HPF (0-3)
[2020-07-25 06:59] LABS: #Lymphocytes 0.6 thou/uL (1.20-3.40); #Monocytes 0.2 thou/uL (0.11-0.59); #Neutrophils 0.8 thou/uL (1.40-6.50); %Basophils 0.1 % (0.0-1.0); %Eosinophils 2.7 % (0.0-10.0); %Lymphocytes 34.8 % (21.0-51.0); %Monocytes 14.2 % (0.0-10.0); %Neutrophils 48.3 % (42.0-75.0); Hemoglobin 7.2 g/dL (12.0-16.0); Mean Corpuscular HGB CONC 34.1 g/dL (32.0-36.0); Mean Corpuscular Hemoglobin 34.9 pg (27.0-31.0); Mean Platelet Volume 8.1 fL (7.4-10.4); Platelet Count 116 thou/uL (130-400); RBC Distribution Width 13.6 % (11.5-14.5); Red Blood Cell (RBC) Count 2.06 mill/uL (4.20-5.40); White Blood Cell (WBC) Count 1.7 thou/uL (4.8-10.8)
[2020-07-25] MEDS: Cholecalciferol 1,000 UNITS (25 MCG) TAB PO SCH (10:02)
[2020-07-25] MEDS ORDERED: Non-Formulary Item 1 EACH (Tizanidine Hcl [Tizanidine Hcl] 4 MG Capsule) PO PRN (12:02)
[2020-07-25] MEDS ORDERED: tiZANidine HCl 4 MG TAB PO PRN (12:13)
[2020-07-25] MEDS: Lorazepam 2 MG/ML VIAL SLOW IVP PRN (20:29)
[2020-07-25] MEDS ORDERED: Melatonin 3 MG TAB PO SCH (21:00)
[2020-07-26 06:36] LABS: #Eosinphils 0.1 thou/uL (0.0-0.7); #Lymphocytes 0.9 thou/uL (1.20-3.40); #Monocytes 0.3 thou/uL (0.11-0.59); #Neutrophils 1.8 thou/uL (1.40-6.50); %Basophils 0.2 % (0.0-1.0); %Eosinophils 1.6 % (0.0-10.0); %Lymphocytes 28.8 % (21.0-51.0); %Monocytes 10.1 % (0.0-10.0); %Neutrophils 59.2 % (42.0-75.0); Hemoglobin 8.6 g/dL (12.0-16.0); Mean Corpuscular HGB CONC 33.7 g/dL (32.0-36.0); Mean Corpuscular Hemoglobin 33.8 pg (27.0-31.0); Mean Platelet Volume 7.6 fL (7.4-10.4); Platelet Count 172 thou/uL (130-400); RBC Distribution Width 13.4 % (11.5-14.5); Red Blood Cell (RBC) Count 2.53 mill/uL (4.20-5.40); White Blood Cell (WBC) Count 3.1 thou/uL (4.8-10.8)
[2020-07-26] MEDS: Cholecalciferol 1,000 UNITS (25 MCG) TAB PO SCH (08:23)
[2020-07-26] MEDS ORDERED: Non-Formulary Item 1 EACH (Omeprazole [Omeprazole] 20 MG Capsule.Dr) PO SCH (09:00)
[2020-07-26] MEDS ORDERED: Non-Formulary Item 1 EACH (Magnesium Oxide [Magnesium Oxide] 400 MG Tablet) PO SCH (09:00)
[2020-07-26] MEDS ORDERED: Ascorbic Acid 500 mg Chewable Tablet PO SCH (09:00)
[2020-07-26] MEDS ORDERED: Magnesium Oxide 400 MG TAB PO SCH (09:00)
[2020-07-26] MEDS ORDERED: Amlodipine 5 MG TAB PO SCH (09:00)
[2020-07-26] MEDS ORDERED: Aspirin 81 mg Enteric Coated Tablet PO SCH (09:00)
[2020-07-26] MEDS ORDERED: Non-Formulary Item 1 EACH (Multivit-Min/Iron/Folic/Lutein [Centrum Silver Women] 1 TABLET PO SCH (09:00)
[2020-07-26] MEDS ORDERED: Multivitamin W/ Minerals 1 TAB PO SCH (09:00)
[2020-07-26] MEDS: Acetaminophen 325 MG TAB PO PRN (11:07)
[2020-07-26 16:44] VITALS: BP 120/60; TEMP 98
== END 2020-07-26 16:26 | DRG 393 ==
LOC: ERS 00:24 → T4-A 04:45 → OBSVTOIN 07-23 12:17
PROVIDERS: ADMIT Internal Medicine; ATTEND Internal Medicine
PROC: 0DJ08ZZ Inspection of Upper Intestinal Tract, Via Natural or Artificial Opening Endoscopic (ICD-10-PCS; principal; 2020-07-21)
PROC: 0W3P8ZZ Control Bleeding in Gastrointestinal Tract, Via Natural or Artificial Opening Endoscopic (ICD-10-PCS; 2020-07-21)
DX: K94.11 Enterostomy hemorrhage (principal); G93.41 Metabolic encephalopathy; D62 Acute posthemorrhagic anemia; K92.2 Gastrointestinal hemorrhage, unspecified; D69.6 Thrombocytopenia, unspecified; I10 Essential (primary) hypertension; Z90.49 Acquired absence of other specified parts of digestive tract; Z98.890 Other specified postprocedural states; Z88.1 Allergy status to other antibiotic agents; Z88.6 Allergy status to analgesic agent; Z79.82 Long term (current) use of aspirin; Z79.899 Other long term (current) drug therapy; E55.9 Vitamin D deficiency, unspecified; K44.9 Diaphragmatic hernia without obstruction or gangrene; Z20.822 Contact with and (suspected) exposure to COVID-19
CPT/HCPCS: 36415; 36416; 71045; 80048; 80053; 80076; 81001; 82140; 82306; 82607; 82746; 83690; 84443; 85025; 85610; 85730; 86850; 86900; 86901; 87635; 96374; 96375; 96376; C9113; G0378; J2060; J2250; J2405; J2704; U0003; U0005

== ENCOUNTER 2020-07-30 17:49 | Inpatient (IN) | payer MEDICARE ==
[2020-07-30 19:11] LABS: #Lymphocytes 0.6 thou/uL (1.20-3.40); #Monocytes 0.3 thou/uL (0.11-0.59); #Neutrophils 1.5 thou/uL (1.40-6.50); %Basophils 0.5 % (0.0-1.0); %Eosinophils 1.6 % (0.0-10.0); %Lymphocytes 23.5 % (21.0-51.0); %Monocytes 12.7 % (0.0-10.0); %Neutrophils 61.8 % (42.0-75.0); Hemoglobin 8.3 g/dL (12.0-16.0); Mean Corpuscular Hemoglobin 32.3 pg (27.0-31.0); Mean Corpuscular Volume 97.9 fL (78.0-98.0); Mean Platelet Volume 7.6 fL (7.4-10.4); Platelet Count 195 thou/uL (130-400); RBC Distribution Width 14.2 % (11.5-14.5); Red Blood Cell (RBC) Count 2.57 mill/uL (4.20-5.40); White Blood Cell (WBC) Count 2.3 thou/uL (4.8-10.8)
[2020-07-30 19:23] LABS: INR-International Normal Ratio 1.1; PTT 24.4 sec (22.9-36.1); Prothrombin Time 14.5 sec (12.0-14.7)
[2020-07-30 19:38] LABS: ALT (SGPT) 23 U/L (8-55); AST (SGOT) 34 U/L (5-34); Albumin 3.6 g/dL (3.4-4.8); Alkaline Phosphatase 90 U/L (40-110); Anion Gap 15 mmol/L (10-20); BUN (Urea Nitrogen) 14 mg/dL (9.8-20.1); Bilirubin, Total 0.4 mg/dL (0.2-1.2); Calc. Creatinine Clearance 0 mL/min (70-130); Calcium 8.4 mg/dL (7.8-10.44); Carbon Dioxide 20 mmol/L (23-31); Chloride 109 mmol/L (98-107); Globulin 2.6 g/dL (2.4-3.5); Glucose 94 mg/dL (83-110); Potassium 3.7 mmol/L (3.5-5.1); Protein, Total 6.2 g/dL (5.8-8.1); Sodium 140 mmol/L (136-145)
[2020-07-30 21:31] LABS: Bilirubin Negative (Negative); Blood, Urine Negative (Negative); Clarity Clear (Clear); Glucose, Urine (Dipstick) Normal (Negative); Ketone, Urine Negative (Negative); Leukocyte Negative Leu/uL (Negative); Nitrite Negative (Negative); Protein, Urine (Dipstick) Negative (Neg-Trace); Specific Gravity, Urine 1.012 (1.002-1.036); Urobilinogen Normal mg/dL (Less than 2)
[2020-07-31] MEDS ORDERED: Ondansetron ODT 4 MG TAB PO PRN (02:38)
[2020-07-31] MEDS ORDERED: Ondansetron PF 4 MG/2 ML Vial IVP PRN (02:38)
[2020-07-31 04:34] LABS: #Lymphocytes 0.6 thou/uL (1.20-3.40); #Monocytes 0.3 thou/uL (0.11-0.59); #Neutrophils 1.6 thou/uL (1.40-6.50); %Basophils 0.3 % (0.0-1.0); %Eosinophils 0.9 % (0.0-10.0); %Lymphocytes 22.4 % (21.0-51.0); %Monocytes 11.1 % (0.0-10.0); %Neutrophils 65.4 % (42.0-75.0); Hemoglobin 8.2 g/dL (12.0-16.0); Mean Corpuscular HGB CONC 32.8 g/dL (32.0-36.0); Mean Corpuscular Hemoglobin 31.7 pg (27.0-31.0); Mean Corpuscular Volume 96.6 fL (78.0-98.0); Mean Platelet Volume 7.7 fL (7.4-10.4); Platelet Count 191 thou/uL (130-400); RBC Distribution Width 14.4 % (11.5-14.5); Red Blood Cell (RBC) Count 2.59 mill/uL (4.20-5.40); White Blood Cell (WBC) Count 2.5 thou/uL (4.8-10.8)
[2020-07-31 04:48] LABS: Anion Gap 11 mmol/L (10-20); BUN (Urea Nitrogen) 9 mg/dL (9.8-20.1); Calc. Creatinine Clearance 0 mL/min (70-130); Calcium 8.1 mg/dL (7.8-10.44); Carbon Dioxide 26 mmol/L (23-31); Chloride 107 mmol/L (98-107); Glucose 95 mg/dL (83-110); Potassium 3.2 mmol/L (3.5-5.1); Sodium 141 mmol/L (136-145)
[2020-07-31 05:22] LABS: SARS-CoV-2 PCR by NAA Not Detected (NotDetected)
[2020-07-31 05:46] LABS: Amphetamine Not Detected (NotDetected); Barbiturates Screen Not Detected (NotDetected); Benzodiazepine Screen Not Detected (NotDetected); Cocaine Metabolite Screen Not Detected (NotDetected); Medtox Control Line Valid? VALID (VALID); Medtox Reader # READER 4; Methadone Not Detected (NotDetected); Methamphetamine Not Detected (NotDetected); Opiate Screen Not Detected (NotDetected); Oxycodone Screen Not Detected (NotDetected); Phencyclidine (PCP) Not Detected (NotDetected); THC/Cannabinoid Screen Not Detected (NotDetected); Tricyclic Screen Not Detected (NotDetected)
[2020-07-31] MEDS ORDERED: Potassium Chloride 20 MEQ TAB PO SCH (08:00)
[2020-07-31] MEDS ORDERED: Enoxaparin Sodium 40 MG/0.4 ML SYRINGE SC SCH (09:00)
[2020-07-31] MEDS: Amlodipine 5 MG TAB PO SCH (12:36)
[2020-07-31] MEDS ORDERED: Potassium Chloride 20 MEQ/100 ML PREMIX BAG ONE (12:37)
[2020-07-31] MEDS ORDERED: Potassium Chloride 20 MEQ TAB ONE (12:39)
[2020-07-31 16:26] VITALS: BMI 25.7
[2020-08-01] MEDS: Amlodipine 5 MG TAB PO SCH (09:56)
[2020-08-01] MEDS: Cholecalciferol 1,000 UNITS (25 MCG) TAB PO SCH (12:07)
[2020-08-01] MEDS: Acetaminophen 325 MG TAB PO PRN (15:09)
[2020-08-02] MEDS: Acetaminophen 325 MG TAB PO PRN (03:47)
[2020-08-02] MEDS: Cholecalciferol 1,000 UNITS (25 MCG) TAB PO SCH (09:26)
[2020-08-02] MEDS: Amlodipine 5 MG TAB PO SCH (09:26)
[2020-08-02 14:23] LABS: Anion Gap 15 mmol/L (10-20); BUN (Urea Nitrogen) 14 mg/dL (9.8-20.1); Calc. Creatinine Clearance 85 mL/min (70-130); Calcium 8.3 mg/dL (7.8-10.44); Carbon Dioxide 20 mmol/L (23-31); Chloride 109 mmol/L (98-107); Glucose 117 mg/dL (83-110); Potassium 3.7 mmol/L (3.5-5.1); Sodium 140 mmol/L (136-145)
[2020-08-03] MEDS: Cholecalciferol 1,000 UNITS (25 MCG) TAB PO SCH (08:21)
[2020-08-03] MEDS: Amlodipine 5 MG TAB PO SCH (08:21)
[2020-08-03] MEDS ORDERED: Melatonin 3 MG TAB PO SCH (20:45)
[2020-08-03] MEDS: Nicotine 14 MG PATCH TOP SCH (20:51)
[2020-08-04 05:40] LABS: #Lymphocytes 0.8 thou/uL (1.20-3.40); #Monocytes 0.4 thou/uL (0.11-0.59); #Neutrophils 1.7 thou/uL (1.40-6.50); %Basophils 0.1 % (0.0-1.0); %Eosinophils 1.5 % (0.0-10.0); %Lymphocytes 26.4 % (21.0-51.0); %Monocytes 13.3 % (0.0-10.0); %Neutrophils 58.8 % (42.0-75.0); Mean Corpuscular HGB CONC 31.4 g/dL (32.0-36.0); Mean Corpuscular Hemoglobin 29.4 pg (27.0-31.0); Mean Corpuscular Volume 93.8 fL (78.0-98.0); Mean Platelet Volume 8.1 fL (7.4-10.4); Platelet Count 204 thou/uL (130-400); RBC Distribution Width 15.5 % (11.5-14.5); Red Blood Cell (RBC) Count 2.73 mill/uL (4.20-5.40); White Blood Cell (WBC) Count 2.9 thou/uL (4.8-10.8)
[2020-08-04] MEDS ORDERED: Non-Formulary Item 1 EACH (Multivit-Min/Iron/Folic/Lutein [Centrum Silver Women] 1 TABLET PO SCH (09:00)
[2020-08-04] MEDS ORDERED: Non-Formulary Item 1 EACH (Magnesium Oxide [Magnesium Oxide] 400 MG Tablet) PO SCH (09:00)
[2020-08-04] MEDS: Amlodipine 5 MG TAB PO SCH (09:58)
[2020-08-04] MEDS: Pantoprazole 40 MG GRANULES PACKET PO SCH (09:59)
[2020-08-04] MEDS: Multivitamin W/ Minerals 1 TAB PO SCH (09:59)
[2020-08-04] MEDS: Ascorbic Acid 500 mg Chewable Tablet PO SCH (09:59)
[2020-08-04] MEDS: Magnesium Oxide 400 MG TAB PO SCH (09:59)
[2020-08-04] MEDS: Cholecalciferol 1,000 UNITS (25 MCG) TAB PO SCH ×2 (10:00)
[2020-08-04] MEDS: diphenhydrAMINE 25 MG CAP PO PRN (21:57)
[2020-08-04] MEDS: Acetaminophen 325 MG TAB PO PRN (21:57)
[2020-08-04] MEDS: Nicotine 14 MG PATCH TOP SCH (21:59)
[2020-08-05] MEDS: Acetaminophen 325 MG TAB PO PRN ×3 (09:05→22:11)
[2020-08-05] MEDS: Pantoprazole 40 MG GRANULES PACKET PO SCH (09:05)
[2020-08-05] MEDS: Amlodipine 5 MG TAB PO SCH (09:06)
[2020-08-05] MEDS: Magnesium Oxide 400 MG TAB PO SCH (09:06)
[2020-08-05] MEDS: Cholecalciferol 1,000 UNITS (25 MCG) TAB PO SCH (09:07)
[2020-08-05] MEDS: Multivitamin W/ Minerals 1 TAB PO SCH (09:10)
[2020-08-05] MEDS: Ascorbic Acid 500 mg Chewable Tablet PO SCH (09:11)
[2020-08-05] MEDS: diphenhydrAMINE 25 MG CAP PO PRN ×2 (12:47→22:11)
[2020-08-05] MEDS: Metamucil PACK PO SCH (12:48)
[2020-08-05] MEDS: Nicotine 14 MG PATCH TOP SCH (22:12)
[2020-08-06 07:16] VITALS: TEMP 98.4
[2020-08-06] MEDS: Pantoprazole 40 MG GRANULES PACKET PO SCH (08:58)
[2020-08-06] MEDS: Cholecalciferol 1,000 UNITS (25 MCG) TAB PO SCH (09:02)
[2020-08-06] MEDS: Amlodipine 5 MG TAB PO SCH (09:03)
[2020-08-06] MEDS: Magnesium Oxide 400 MG TAB PO SCH (09:03)
[2020-08-06] MEDS: Multivitamin W/ Minerals 1 TAB PO SCH (09:04)
[2020-08-06] MEDS: Ascorbic Acid 500 mg Chewable Tablet PO SCH (09:04)
[2020-08-06] MEDS: Acetaminophen 325 MG TAB PO PRN (09:15)
[2020-08-06 11:22] VITALS: BP 121/60
[2020-08-06] MEDS: Metamucil PACK PO SCH (11:52)
== END 2020-08-06 16:44 | disposition home or self-care (01) | DRG 85 ==
LOC: ERS 17:49 → ERHOLD 23:48 → 2SE 07-31 15:55 → OBSVTOIN 08-02 14:31
PROVIDERS: ADMIT Student in an Organized Health Care Education/Training Program; ATTEND Hospitalist
DX: S06.340A Traumatic hemorrhage of right cerebrum without loss of consciousness, initial encounter (principal); G93.41 Metabolic encephalopathy; D62 Acute posthemorrhagic anemia; Z93.3 Colostomy status; I10 Essential (primary) hypertension; Z20.822 Contact with and (suspected) exposure to COVID-19; E87.6 Hypokalemia; E55.9 Vitamin D deficiency, unspecified; K21.9 Gastro-esophageal reflux disease without esophagitis; M19.042 Primary osteoarthritis, left hand; F32.5 Major depressive disorder, single episode, in full remission; G60.9 Hereditary and idiopathic neuropathy, unspecified; S52.125A Nondisplaced fracture of head of left radius, initial encounter for closed fracture; Z93.2 Ileostomy status; Z90.49 Acquired absence of other specified parts of digestive tract; Z79.899 Other long term (current) drug therapy; R40.2412 Glasgow coma scale score 13-15, at arrival to emergency department
CPT/HCPCS: 36415; 51701; 70450; 71045; 80048; 80053; 80306; 81003; 84484; 85025; 85610; 85730; 87086; 87635; 93005; 93306; G0378; J2405; J3480; Q0163; U0003; U0005